=== PATIENT | female | born 1990 | race Caucasian/White ===

== ENCOUNTER 2016-09-04 14:44 | Observation (INO) | payer BC, MEDICAID ==
[2016-09-04] VITALS (8 sets, daily range): BP systolic 92–111; BP diastolic 53–62; PULSE 76–88; RESP 16–20; TEMP 98–98.2; O2SAT 100
[~2016-09-04] VITALS: Ht 149.9 cm; Wt 71.2 kg
--- NOTE | 2016-09-04 16:31 | PD ---
HPI Chief Complaint Shortness of breath., headache, swelling and rash in her hands and feet ,back pain is feeling very bad over the last several days Date Seen: Sep 04, 2016 Travel History International Travel<30 Days: No Contact w/Intl Traveler<30Days: No Known Affected Area: No History of Present Illness HPI Patient is 26-year-old white female at 34 weeks sent over by Dr. Downing for 23 hour observation and collect lab in the other data on her, she is been doing well with her and moved here in July from [place] and is started her care here. Over the last several weeks she started feeling worse and recently now her asthma is been flaring up shortness of breath is worse she's been using her inhaler as directed reachieve symmetry Dr. Downing today in our office she wanted her sent over for observation admission. Patient's baby is active there is no contractions bleeding or rupture the membranes. Para: 0 : 1 History Past Medical History Narrative Medical Asthma Social History Alcohol Use: No Tobacco Use: No Substance Abuse: No Review of Systems Eyes: Pain HENT: Headaches Respiratory: Short of Breath Gastrointestinal: Nausea, Abdominal Pain Skin: Rash Neurologic: Dizziness Physical Exam Narrative GENERAL: Well-nourished, well-developed patient. In no acute distress SKIN: Warm and dry. HEAD: Normocephalic and atraumatic. EYES: No scleral icterus. No injection or drainage. ENT: No nasal drainage noted. Mucous membranes pink. Airway patent. NECK: Supple, trachea midline. No JVD. CARDIOVASCULAR: Regular rate and rhythm without murmurs, gallops, or rubs. RESPIRATORY: Breath sounds equal bilaterally. No accessory muscle use. BREASTS: Bilateral exam showed no masses , no retractions, no nipple discharge. ABDOMEN/GI: Abdomen soft, non-tender, bowel sounds present, no rebound, no guarding no CVA tenderness Gravid to [34-] weeks size Fundal Height: [34-] GENITOURINARY: Uterine Contractions: [ none-] FHT's: Category: [1-] Baseline: [144-] Reactive: [-yes] Variability: [mod-] Decels: [-none] EXTREMITIES: No cyanosis or edema. BACK: Nontender without obvious deformity. No CVA tenderness. NEUROLOGICAL: Awake and alert. Motor and sensory grossly within normal limits. Five out of 5 muscle strength in all muscle groups. Normal speech. Data Data Orders Complete Blood Count With Diff (09/04/16 15:50) Urinalysis - C+S If Indicated (09/04/16 15:50) Hemoglobin (Hgb) A1c (09/04/16 15:50) Basic Metabolic Panel (Bmp) (09/04/16 15:50) Place In Observation (09/04/16 ) MDM Interpretation(s) The patient is a 26-year-old white female at [address] Downing for evaluation of shortness of breath headache and multiple other complaints. She denies bleeding or leakage of fluid or contractions baby is active heart rate tracing is reactive. Her O2 sats 100% her lungs are clear no wheezing noted Plan Plan to follow Dr. Downing's orders by getting the patient observation checking the labs she is her review recommended and she will follow-up with the patient's therapies Diagnosis Diagnosis: Primary Impression: Shortness of breath due to in third trimester Additional Impression: Headache Condition: Stable Fish Holland II, MD Sep 04, 2016 16:31
[2016-09-04 16:36] LABS: BACTERIA, URINE RARE /hpf; BLOOD, URINE NEG (NEG); COMMENT (UR) CULT NOT INDICATED; CULTURE IF INDICATED CULT NOT INDICATED; GLUCOSE,URINE NEG (NEG); KETONE, URINE NEG (NEG); MUCUS URINE FEW /lpf (OCC); NITRITE,URINE NEG (NEG); PH, URINE 6.5 (5.0-8.5); SQUAMOUS EPITHELIAL CELL URINE 9 /hpf (0-5); URINE COLOR LIGHT-YELLOW (YELLW/STRAW)
[2016-09-04 16:37] LABS: AUTOMATED NEUTROPHIL # 8.4 TH/MM3 (1.8-7.7); BASOPHIL % 0.4 % (0.0-2.0); EOSINOPHIL # 0.1 TH/MM3 (0-0.4); EOSINOPHIL % 0.6 % (0.0-4.0); HEMATOCRIT 36.1 % (35.0-46.0); HEMO FLAGS DIFF FINAL; LYMPH % 13.8 % (9.0-44.0); LYMPHOCYTE # 1.5 TH/MM3 (1.0-4.8); MEAN CELL VOLUME 92.7 FL (80.0-100.0); MEAN CORPUSCULAR HEMOGLOBIN 31.3 PG (27.0-34.0); MEAN CORPUSCULAR HGB CONC 33.7 % (32.0-36.0); MONO % 5.7 % (0.0-8.0); NEUT % 79.5 % (16.0-70.0); PLATELET COUNT 163 TH/MM3 (150-450); RED BLOOD COUNT 3.89 MIL/MM3 (4.00-5.30); WHITE BLOOD COUNT 10.6 TH/MM3 (4.0-11.0)
[2016-09-04 16:48] LABS: ANION GAP 7 MEQ/L (5-15); BICARBONATE 25.7 MEQ/L (21.0-32.0); BLOOD UREA NITROGEN 7 MG/DL (7-18); CHLORIDE 107 MEQ/L (98-107); GLOMERULAR FILTRATION RATE 159 ML/MIN (>89); POTASSIUM 4.1 MEQ/L (3.5-5.1); SODIUM (NA) 140 MEQ/L (136-145)
[2016-09-04] MEDS ORDERED: PRENCAP PO (17:03)
[2016-09-04] MEDS ORDERED: ALBUAER3 INH (17:03)
[2016-09-04] MEDS ORDERED: M2 M100C (17:03)
[2016-09-04 17:49] LABS: HEMOGLOBIN A1a 0.9 %; HEMOGLOBIN A1b 0.8 %; HEMOGLOBIN F 0.8 %; HEMOGLOBIN LA1C 1.8 %; HEMOGLOBIN P3 3.3 %
[2016-09-04] MEDS: traMADol HCL 50 MG TAB PO PRN (18:08)
[2016-09-04] MEDS ORDERED: ALBUTEROL SULFATE 90 MCG/ACT HFA 8 GM INHALER INH PRN (18:15)
[2016-09-04] MEDS ORDERED: LACTATED RINGER'S 1000 ML INJ 500 ML IV SCH (18:15)
--- NOTE | 2016-09-04 20:57 | PD.OB.ANTE ---
Subjective Interval History As per Dr. Holland; Joy seen in our office and ill appearing with complaint of change in accuchecks from very normal range to 50's-150's with no change in diet or activity. Swelling, PAREKH, blurred vision, rash, nausea and cramping. GFM and BPP in office 02/12. However placenta grade 3. She had 3+ DTRs in office. brought in for extended monitoring. 2 PP was 85 and labs all normal tho platelets 163. Very irritable uterus. Reassuring strip. Antepartum ROS: Reports: movement normal, Contractions Objective Vital Signs Vital Signs Date Time Temp Pulse Resp B/P Pulse Ox O2 Delivery O2 Flow Rate FiO2 09/04/16 20:00 88 100 09/04/16 19:31 83 92/53 09/04/16 19:30 98.0 09/04/16 17:00 98.2 09/04/16 16:50 85 111/62 09/04/16 16:49 16 Lab & Micro Results Test 09/04/16 15:55 White Blood Count 10.6 TH/MM3 Red Blood Count 3.89 MIL/MM3 Hemoglobin 12.2 GM/DL Hematocrit 36.1 % Mean Corpuscular Volume 92.7 FL Mean Corpuscular Hemoglobin 31.3 PG Mean Corpuscular Hemoglobin 33.7 % Concent Red Cell Distribution Width 13.0 % Platelet Count 163 TH/MM3 Mean Platelet Volume 9.0 FL Neutrophils (%) (Auto) 79.5 % Lymphocytes (%) (Auto) 13.8 % Monocytes (%) (Auto) 5.7 % Eosinophils (%) (Auto) 0.6 % Basophils (%) (Auto) 0.4 % Neutrophils # (Auto) 8.4 TH/MM3 Lymphocytes # (Auto) 1.5 TH/MM3 Monocytes # (Auto) 0.6 TH/MM3 Eosinophils # (Auto) 0.1 TH/MM3 Basophils # (Auto) 0.0 TH/MM3 CBC Comment DIFF FINAL Differential Comment Urine Color LIGHT-YELLOW Urine Turbidity HAZY Urine pH 6.5 Urine Specific [place] 1.008 Urine Protein NEG mg/dL Urine Glucose (UA) NEG mg/dL Urine Ketones NEG mg/dL Urine Occult Blood NEG Urine Nitrite NEG Urine Bilirubin NEG Urine Urobilinogen LESS THAN 2.0 MG/DL Urine Leukocyte Esterase SMALL Urine WBC LESS THAN 1 /hpf Urine Squamous Epithelial 9 /hpf Cells Urine Bacteria RARE /hpf Urine Mucus FEW /lpf Microscopic Urinalysis Comment CULT NOT INDICATED Sodium Level 140 MEQ/L Potassium Level 4.1 MEQ/L Chloride Level 107 MEQ/L Carbon Dioxide Level 25.7 MEQ/L Anion Gap 7 MEQ/L Blood Urea Nitrogen 7 MG/DL Creatinine 0.48 MG/DL Estimat Glomerular Filtration 159 ML/MIN Rate Random Glucose 96 MG/DL Hemoglobin A1c 5.0 % Calcium Level 8.7 MG/DL Physical Exam GENERAL: Well-nourished, well-developed patient. CARDIOVASCULAR: Regular rate and rhythm without murmurs, gallops, or rubs. RESPIRATORY: Breath sounds equal bilaterally. No accessory muscle use. ABDOMEN/GI: Abdomen soft, non-tender. 32 GENITOURINARY: External Genitalia: intact and normal in appearance 1+/20%/-2 intact contractions mild to palpation category 1 EXTREMITIES: No cyanosis or edema, non-tender, without signs of DVT. Assessment and Plan Assessment and Plan 34 + week primip with Class A GDM and significant asthma -- not yet on her xolair due to insurance issues. Feeling poorly with non descript finding. here for extensive monitoring. glyberide discontinued will give steroids given possibility of early delivery and reasonable glucose control Luciana Downing MD Sep 04, 2016 20:57
[2016-09-04] MEDS ORDERED: CALCIUM GLUCONATE 10% 1 GM/10 ML VIAL IV PRN (21:00)
[2016-09-04] MEDS ORDERED: MORPHINE SULFATE 4 MG/ML INJ IV PUSH ONE (21:30)
[2016-09-04] MEDS: LACTATED RINGER'S 1000 ML INJ 1,000 ML IV SCH (21:46)
[2016-09-04] MEDS: BETAMETHASONE SOD PHOS/ACETATE SUSP 30 MG/5 ML VIAL IM SCH (21:46)
[2016-09-04 22:38] LABS: AMPHETAMINE, URINE NEG (NEG); BARBITURATES, URINE NEG (NEG); COCAINE, URINE NEG (NEG)
[2016-09-05] VITALS (7 sets, daily range): BP systolic 101–113; BP diastolic 48–63; PULSE 81–119; RESP 18–20; TEMP 97.4–98.5; O2SAT 99
[2016-09-05] MEDS: traMADol HCL 50 MG TAB PO PRN (00:04)
[2016-09-05] MEDS: LACTATED RINGER'S 1000 ML INJ 1,000 ML IV SCH (03:00)
[2016-09-05] MEDS: BETAMETHASONE SOD PHOS/ACETATE SUSP 30 MG/5 ML VIAL IM SCH (10:29)
[2016-09-05 11:04] LABS: BASOPHIL % 0.1 % (0.0-2.0); HEMATOCRIT 35.6 % (35.0-46.0); HEMO FLAGS DIFF FINAL; LYMPH % 7.1 % (9.0-44.0); LYMPHOCYTE # 0.8 TH/MM3 (1.0-4.8); MEAN CORPUSCULAR HEMOGLOBIN 31.4 PG (27.0-34.0); MEAN CORPUSCULAR HGB CONC 34.1 % (32.0-36.0); MONO % 1.5 % (0.0-8.0); NEUT % 91.3 % (16.0-70.0); PLATELET COUNT 159 TH/MM3 (150-450); RED BLOOD COUNT 3.87 MIL/MM3 (4.00-5.30)
--- NOTE | 2016-09-05 11:33 | PD.OB.ANTE ---
Subjective Interval History HD#2, Feeling better. Blood sugar and HgbA1c are normal Objective Vital Signs Vital Signs Date Time Temp Pulse Resp B/P Pulse Ox O2 Delivery O2 Flow Rate FiO2 09/05/16 09:12 98.1 09/05/16 09:12 20 09/05/16 05:22 97.4 09/05/16 05:01 18 09/05/16 05:00 88 105/63 99 09/05/16 00:07 99 09/05/16 00:07 81 18 101/59 09/04/16 22:23 20 100 09/04/16 22:22 76 97/59 09/04/16 20:00 88 100 09/04/16 19:31 83 92/53 09/04/16 19:30 98.0 09/04/16 17:00 98.2 09/04/16 16:50 85 111/62 09/04/16 16:49 16 Lab & Micro Results Test 09/04/16 09/05/16 15:55 10:39 White Blood Count 10.6 TH/MM3 12.0 TH/MM3 Red Blood Count 3.89 MIL/MM3 3.87 MIL/MM3 Hemoglobin 12.2 GM/DL 12.1 GM/DL Hematocrit 36.1 % 35.6 % Mean Corpuscular Volume 92.7 FL 92.0 FL Mean Corpuscular Hemoglobin 31.3 PG 31.4 PG Mean Corpuscular Hemoglobin 33.7 % 34.1 % Concent Red Cell Distribution Width 13.0 % 13.0 % Platelet Count 163 TH/MM3 159 TH/MM3 Mean Platelet Volume 9.0 FL 9.0 FL Neutrophils (%) (Auto) 79.5 % 91.3 % Lymphocytes (%) (Auto) 13.8 % 7.1 % Monocytes (%) (Auto) 5.7 % 1.5 % Eosinophils (%) (Auto) 0.6 % 0.0 % Basophils (%) (Auto) 0.4 % 0.1 % Neutrophils # (Auto) 8.4 TH/MM3 11.0 TH/MM3 Lymphocytes # (Auto) 1.5 TH/MM3 0.8 TH/MM3 Monocytes # (Auto) 0.6 TH/MM3 0.2 TH/MM3 Eosinophils # (Auto) 0.1 TH/MM3 0.0 TH/MM3 Basophils # (Auto) 0.0 TH/MM3 0.0 TH/MM3 CBC Comment DIFF FINAL DIFF FINAL Differential Comment Urine Color LIGHT-YELLOW Urine Turbidity HAZY Urine pH 6.5 Urine Specific [place] 1.008 Urine Protein NEG mg/dL Urine Glucose (UA) NEG mg/dL Urine Ketones NEG mg/dL Urine Occult Blood NEG Urine Nitrite NEG Urine Bilirubin NEG Urine Urobilinogen LESS THAN 2.0 MG/DL Urine Leukocyte Esterase SMALL Urine WBC LESS THAN 1 /hpf Urine Squamous Epithelial 9 /hpf Cells Urine Bacteria RARE /hpf Urine Mucus FEW /lpf Microscopic Urinalysis Comment CULT NOT INDICATED Sodium Level 140 MEQ/L Potassium Level 4.1 MEQ/L Chloride Level 107 MEQ/L Carbon Dioxide Level 25.7 MEQ/L Anion Gap 7 MEQ/L Blood Urea Nitrogen 7 MG/DL Creatinine 0.48 MG/DL Estimat Glomerular Filtration 159 ML/MIN Rate Random Glucose 96 MG/DL Hemoglobin A1c 5.0 % Calcium Level 8.7 MG/DL Urine Opiates Screen NEG Urine Barbiturates Screen NEG Urine Amphetamines Screen NEG Urine Benzodiazepines Screen NEG Urine Cocaine Screen NEG Urine Cannabinoids Screen NEG Physical Exam GENERAL: Well-nourished, well-developed patient. CARDIOVASCULAR: Regular rate and rhythm without murmurs, gallops, or rubs. RESPIRATORY: Breath sounds equal bilaterally. No accessory muscle use. ABDOMEN/GI: Abdomen soft, non-tender. Fundus: [-] GENITOURINARY: External Genitalia: intact and normal in appearance Cervix: [-] Membranes: intact Uterine Contractions: n/a FHT's: Category: 1 Baseline: [-] Reactive: [-] Variability: [-] Decels: [-] EXTREMITIES: No cyanosis or edema, non-tender, without signs of DVT. Assessment and Plan Assessment and Plan 34 + weeks, Doing well, feels better, No UC,Bleeding; Denies PAREKH,BV,N/V 24 hour collection inprogress, will discharge to home after 24 hour urine completed.RTO in 1 week Zaki Mahmood MD Sep 05, 2016 11:33
[2016-09-05 16:48] LABS: URINE TOTAL PROTEIN TIMED 5.3 MG/DL
== END 2016-09-05 17:59 | disposition home or self-care (01) ==
LOC: HOBED 14:44 → H2EA 16:33
PROVIDERS: ADMIT Obstetrics & Gynecology; ATTEND Obstetrics & Gynecology
DX: O99.513 Diseases of the respiratory system complicating pregnancy, third trimester (principal); R51 Headache; R21 Rash and other nonspecific skin eruption; M54.9 Dorsalgia, unspecified; Z3A.34 34 weeks gestation of pregnancy; R11.0 Nausea; H53.8 Other visual disturbances
CPT/HCPCS: 36415; 80048; 80307; 81001; 83036; 84157; 85025; 99285; G0378; J0702; J2270; J7120

== ENCOUNTER 2016-09-12 18:53 | Emergency (ER) | payer BC, MEDICAID ==
[~2016-09-12] VITALS: Ht 149.9 cm; Wt 72.0 kg
[~2016-09-12 18:53] MED LIST: ALBUAER3 INH; M2 M100C; PRENCAP PO
[2016-09-12 18:55] VITALS: BP 151/90; PULSE 120; RESP 24; TEMP 97.7; O2SAT 96
[2016-09-12 19:24] VITALS: PULSE 105; RESP 16; O2SAT 98
[2016-09-12] MEDS ORDERED: ACETAMINOPHEN 325 MG TAB PO ONE (19:45)
--- NOTE | 2016-09-12 19:55 | PD ---
HPI Chief Complaint: Fall Time Seen by Provider: 19:49 Travel History International Travel<30 days: No Contact w/Intl Traveler<30days: No Traveled to known affect area: No History of Present Illness HPI Patient comes in complaining of left thumb pain after slipping and falling and catching herself with her left hand after falling backwards. Pain is sharp stabbing pain that radiates proximally. Pain is worse with certain movement. Patient since developed some achiness in her left shoulder that is worse with certain movement. Patient denies any direct trauma to the shoulder. Patient denies doing anything for this prior coming to the emergency department. Denies any numbness or tingling. Patient is approximately 35 weeks reports she is high risk and that she did hit the right side of her belly when she landed. Patient reports she has felt the baby move since has been having contractions over the past week and is on bedrest secondary being high risk . PFSH Past Medical History Asthma: Yes Diabetes: Yes (GESTATIONAL) Patient Takes Glucophage: No Diminished Hearing: No Respiratory: Yes (ASTHMA) Tetanus Vaccination: < 5 Years Influenza Vaccination: Yes ?: LMP: 35 WKS Past Surgical History Surgical History: No Previous Surgery Social History Alcohol Use: No Tobacco Use: No Substance Use: No Allergies-Medications (Allergen,Severity, Reaction): Coded Allergies: Pecan (Verified Allergy, Severe, Rash, THROAT SWELLS, 09/12/16) Reported Meds & Prescriptions Reported Meds & Active Scripts Active Reported Magnesium 100 Mg Cap Proair Hfa 8.5 GM Inh (Albuterol Sulfate) 90 Mcg/Act Aer 2 Puff INH Q4-6H PRN 108 mcg/actuation Active Ob 20-1-320 mg ( W/O Vit A W/ Fe Carbo) 1 Cap Cap 1 Tab PO DAILY Review of Systems Except as stated in HPI: all other systems reviewed are Neg Physical Exam Narrative GENERAL: Well-developed, well nourished, in no acute distress, and non-ill appearing. SKIN: Warm and dry. No ecchymosis, abrasions, or other traumatic lesions noted on the right side of the abdomen patient states she hit. HEAD: Atraumatic. Normocephalic. EYES: Pupils equal and round. EOMI. No scleral icterus. No injection or drainage. ENT: No nasal bleeding or discharge. Mucous membranes pink and moist. NECK: Trachea midline. Supple. No nuclear rigidity. CARDIOVASCULAR: Radial pulses 2+, intact, equal bilaterally. Capillary refill less than 2 seconds. RESPIRATORY: No accessory muscle use. No respiratory distress. MUSCULOSKELETAL: No obvious deformities. No clubbing. No cyanosis. No edema. Full range of motion. Shoulder:FROM equal BL with passive flexion, extension, Abduction, Adduction, internal/external rotation, and pronation/supination. Sensation equal BL deltoid muscles. Pulses equal BL distal to injury. Capillary refill less than 2 seconds distal to injury and equal BL. FROM distal to injury and equal BL. Strength distal to injury equal BL. NV intact distal to injury equal BL. Flexion and extension of thumb equal BL. Equal strength and movement with abduction/adductions of BL fingers. Aircraft Maintenance [employer] strength equal BL. Wrist : FROM and equal BL with passive flexion, extension, and pronation/supination. Capillary refill less than 2 seconds distal to injury and equal BL. FROM distal to injury and equal BL. Strength distal to injury equal BL. NV intact distal to injury. Flexion and extension of thumb equal BL. Equal strength and movement with abduction/adductions of BL fingers. Aircraft Maintenance Manager strength equal BL. No tenderness to the anatomical snuffbox. Patient reports tenderness to palpation over proximal phalanx of left thumb and first metacarpal. NEUROLOGICAL: Awake and alert. No obvious cranial nerve deficits. Motor grossly within normal limits. Normal speech. PSYCHIATRIC: Appropriate mood and affect; insight and judgment normal. Data Data Last Documented VS Vital Signs Date Time Temp Pulse Resp B/P Pulse Ox O2 Delivery O2 Flow Rate FiO2 09/12/16 21:06 16 09/12/16 19:41 99 Room Air 09/12/16 19:24 105 09/12/16 18:55 97.7 151/90 Orders Finger ([id number]) (09/12/16 ) Ice/Cold Pack (09/12/16 19:40) Heart Tones (09/12/16 19:40) Acetaminophen (Tylenol) (09/12/16 19:45) Shoulder, Limited(2vws) (09/12/16 ) Splint Or Brace Apply/Monitor (09/12/16 20:29) Scapula (09/12/16 ) [facility] Medical Decision Making Medical Screen Exam Complete: Yes Emergency Medical Condition: Yes Differential Diagnosis Fracture, strain, contusion, other Narrative Course There is no clinical evidence for fracture. There is no clinical evidence to suspect bony injury by exam. Radiographic examination revealed no fracture seen at this time. No obvious ligamental injury or internal derangement is noted at this time. The distal extremity appears neurovascularly intact, without evidence of neurovascular injury nor compartment syndrome. Tendon exam also was intact. The effected limb was splinted. The patient was discharged with sprain and splint care instructions and given warnings for vascular compromise. The patient is to follow up with Dr. Maldonado. The patient agrees with plan. Patient in no obvious distress upon re-evaluation. All pertinent Radiology result(s) discussed with patient/family. I discussed patient with Dr. Yusuf prior to discharge, who is in agreement with plan of care and disposition. Any questions/concerns in reference to patient diagnosis/condition discussed and clarified prior to patient's discharge. Reinforced sheer importance of close follow up with patient's primary physician and Dr. Maldonado. Instructed patient to return to ED immediately, if symptoms return/worsen. Pt showed understanding of above instructions. Further instructions and recommendations were detailed in discharge paperwork. Pt was transferred to OB for monitoring secondary to abdominal wall trauma. Diagnosis Primary Impression: Other sprain of left thumb, initial encounter Additional Impression: Strain of left shoulder Qualified Code: S46.912A - Strain of left shoulder, initial encounter Referrals: Romy Maldonado MD Patient Instructions: Finger Sprain (ED), General Instructions, How to Use a Sling (GEN), Shoulder Sprain (ED), Splint Care (ED) Additional Instructions: Follow-up with your primary care physician and/or hand surgeon 24-48 hours for reevaluation. Use [id number] Tylenol as needed for pain. Follow instructions on the packaging. Apply ice to affected area 20 minutes per hour as needed for pain. Return to the emergency department if symptoms get worse. Disposition: 01 DISCHARGE HOME Condition: Paresh Vaughn Sep 12, 2016 19:55
--- NOTE | 2016-09-12 20:23 | RADRPT ---
EXAM DATE/TIME: 09/12/2016 20:06 [facility] COMPARISON: No previous studies available for comparison. INDICATIONS : Left hand, thumb pain, fall today. MEDICAL HISTORY : None. SURGICAL HISTORY : None. ENCOUNTER: Initial ACUITY: 1 day PAIN SCORE: 10/10 LOCATION: Left thumb. FINDINGS: Examination of the first digit of the left hand demonstrates no evidence of fracture or dislocation. No radiopaque foreign bodies are seen. The soft tissues are intact. CONCLUSION: No acute fracture left thumb. Dexter Haines MD on September 12, 2016 at 20:21 Board Certified Radiologist. This report was verified electronically.
--- NOTE | 2016-09-12 20:26 | RADRPT ---
EXAM DATE/TIME: 09/12/2016 20:16 [facility] COMPARISON: No previous studies available for comparison. INDICATIONS : Left shoulder pain, fall today. MEDICAL HISTORY : None. SURGICAL HISTORY : None. ENCOUNTER: Initial ACUITY: 1 day PAIN SCORE: 10/10 LOCATION: Left shoulder. FINDINGS: Two view examination of the left shoulder demonstrates a slight cortical irregularity of the scapula questioning fracture. Proximal humerus and remaining shoulders intact. The glenohumeral and acromioc lavicular joints are maintained. Bony mineralization is normal. CONCLUSION: Questionable scapular fracture. Dedicated views of the scapula may be warranted. Dexter Haines MD on September 12, 2016 at 20:22 Board Certified Radiologist. This report was verified electronically.
[2016-09-12 21:06] VITALS: RESP 16
--- NOTE | 2016-09-12 21:16 | RADRPT ---
EXAM DATE/TIME: 09/12/2016 21:15 [facility] COMPARISON: SHOULDER LEFT LTD (2VWS), September 12, 2016, 20:16. INDICATIONS : Left shoulder pain, fall today. MEDICAL HISTORY : None. SURGICAL HISTORY : None. ENCOUNTER: Subsequent ACUITY: 1 day PAIN SCORE: 10/10 LOCATION: Left scapula FINDINGS: Two view examination of the left scapula demonstrates no evidence of fracture. The glenohumeral and acromioclavicular joints are maintained. Bony mineralization is normal. CONCLUSION: No scapular fracture seen. Dexter Haines MD on September 12, 2016 at 21:14 Board Certified Radiologist. This report was verified electronically.
--- NOTE | 2016-09-12 22:40 | PD ---
HPI Chief Complaint Fall at home with left shoulder and thumb injury has been cleared by the main emergency department to come up to labor and delivery Date Seen: Sep 12, 2016 Time Seen: 22:36 Travel History International Travel<30 Days: No Contact w/Intl Traveler<30Days: No Known Affected Area: No History of Present Illness HPI 26-year-old female who is at 35 weeks 1 day is at bedrest at home. Over some boxes hit her left shoulder and left thumb and heard a popping came here to maintain ER. She states that when she did fall down to the ground she rolled onto her belly for a short time but there was no abdominal trauma noted. Good movement Para: 0 : 1 History Past Medical History Narrative Medical Asthma Past Surgical History Narrative Surgical Cholecystectomy and appendectomy Family History Family History: Negative Social History Alcohol Use: No Tobacco Use: No Substance Abuse: No Allergies-Medications (Allergen,Severity, Reaction): Coded Allergies: Pecan (Verified Allergy, Severe, Rash, THROAT SWELLS, 09/12/16) Home Meds Reported Medications Magnesium 100 Mg Cap 09/04/16 Albuterol 8.5 GM Inh (Proair Hfa 8.5 GM Inh)90 Mcg/Act Aer2 Puff INH Q4-6H PRN ( SHORTNESS OF BREATH) #1 INHALER Ref 0 108 mcg/actuation 09/04/16 W/O Vit A W/ Fe Carbo (Active Ob 20-1-320 mg)1 Cap Cap1 Tab PO DAILY 09/04/16 Review of Systems Except as stated in HPI: all other systems reviewed are Neg Physical Exam Vital Signs Date Time Temp Pulse Resp B/P Pulse Ox O2 Delivery O2 Flow Rate FiO2 09/12/16 21:06 16 09/12/16 19:41 16 99 Room Air 09/12/16 19:24 105 16 98 09/12/16 18:55 97.7 120 24 151/90 96 Room Air Narrative GENERAL: Well-nourished, well-developed patient. SKIN: Warm and dry. ABDOMEN/GI: Abdomen soft, non-tender, bowel sounds present, no rebound, no guarding Gravid to [-] weeks size Fundal Height: [-35] GENITOURINARY: External Genitalia: intact and normal in appearance deferred BUS glands: [-] Cervix: [-] Dilatation: [-] Effacement: [-] Station: [-] Presentation: [-] Membranes: [intact or ruptured] Uterine Contractions: [-] FHT's: Category: [-1] Baseline: [-140] Reactive: [-Reactive moderate] Variability: [-] Decels: [-] Absent EXTREMITIES: No cyanosis or edema. BACK: Nontender without obvious deformity. No CVA tenderness. NEUROLOGICAL: Awake and alert. Motor and sensory grossly within normal limits. Five out of 5 muscle strength in all muscle groups. Normal speech. Data Data Orders Finger ([id number]) (09/12/16 ) Ice/Cold Pack (09/12/16 19:40) Heart Tones (09/12/16 19:40) Acetaminophen (Tylenol) (09/12/16 19:45) Shoulder, Limited(2vws) (09/12/16 ) Splint Or Brace Apply/Monitor (09/12/16 20:29) Scapula (09/12/16 ) MDM Medical Record Reviewed: Yes Plan Patient 35-36 weeks with a reactive nonstress test. Patient has been seen by the main ED and been given treatment for her left shoulder and left. Patient will be discharged home to follow with her OB provider as scheduled. She was given warnings to come back for abdominal pain or vaginal bleeding Diagnosis Diagnosis: Primary Impression: Other sprain of left thumb, initial encounter Additional Impression: Strain of left shoulder Qualified Code: S46.912A - Strain of left shoulder, initial encounter Disposition: 01 DISCHARGE HOME Condition: Fair Referrals: Romy Maldonado MD Patient Instructions: General Instructions, How to Use a Sling (GEN), Splint Care (ED), Shoulder Sprain (ED), Finger Sprain (ED) Additional Instructions: Follow-up with your primary care physician and/or hand surgeon 24-48 hours for reevaluation. Use [id number] Tylenol as needed for pain. Follow instructions on the packaging. Apply ice to affected area 20 minutes per hour as needed for pain. Return to the emergency department if symptoms get worse. Departure Forms: Tests/Procedures Latasha Alcala MD Sep 12, 2016 22:40
== END 2016-09-12 23:10 | disposition home or self-care (01) ==
LOC: HOBED 18:53 → NEPB 21:42 → HOBED 21:50
DX: S63.602A Unspecified sprain of left thumb, initial encounter (principal); S46.912A Strain of unspecified muscle, fascia and tendon at shoulder and upper arm level, left arm, initial encounter; O24.419 Gestational diabetes mellitus in pregnancy, unspecified control; W01.0XXA Fall on same level from slipping, tripping and stumbling without subsequent striking against object, initial encounter; Z3A.35 35 weeks gestation of pregnancy
CPT/HCPCS: 73010; 73030; 73140; 99284; L3808

== ENCOUNTER 2016-10-04 14:10 | Emergency (ER) | payer OTHER, MEDICAID ==
--- NOTE | 2016-10-04 15:16 | PD ---
HPI Travel History International Travel<30 Days: No Contact w/Intl Traveler<30Days: No Known Affected Area: No History of Present Illness HPI This patient is a 26-year-old EDC is October 08, 2016 presently at 38 weeks and 2 days she is scheduled for induction of labor on October 08 she presents with chief complaint of irregular contractions has had a positive bloody show did pass her mucous plug care with Dr. Downing course is significant for a history of gestational diabetes and a history of asthma baby also was large for gestational age no rupture of membranes the baby is active History Past Medical History Narrative Medical Allergy pecans no major medical problems history of gestational diabetes and asthma Obstetric History Obstetric History First Past Surgical History Narrative Surgical Appendectomy and gallbladder Family History Narrative Family History Mother with diabetes Social History Alcohol Use: No Tobacco Use: No Substance Abuse: No Allergies-Medications (Allergen,Severity, Reaction): Coded Allergies: Pecan (Verified Allergy, Severe, Rash, THROAT SWELLS, 09/12/16) Home Meds Reported Medications Magnesium 100 Mg Cap 09/04/16 Albuterol 8.5 GM Inh (Proair Hfa 8.5 GM Inh)90 Mcg/Act Aer2 Puff INH Q4-6H PRN ( SHORTNESS OF BREATH) #1 INHALER Ref 0 108 mcg/actuation 09/04/16 W/O Vit A W/ Fe Carbo (Active Ob 20-1-320 mg)1 Cap Cap1 Tab PO DAILY 09/04/16 Review of Systems Gastrointestinal: Abdominal Pain (irregular contractions) Physical Exam Narrative GENERAL: Well-nourished, well-developed patient. Alert oriented 3 and cooperative in no acute distress CARDIOVASCULAR: Regular rate and rhythm without murmurs, gallops, or rubs. RESPIRATORY: Breath sounds equal bilaterally. No accessory muscle use. ABDOMEN/GI: Gravid term mild palpable contractions Gravid to [-] weeks size term Fundal Height: [-] GENITOURINARY: External Genitalia: intact and normal in appearance BUS glands: [-] Cervix: [-] Posterior soft Dilatation: [-] 1-2 cm Effacement: [-] 0 Station: [-] -2 Presentation: [-] Vertex Membranes: [intact Uterine Contractions: [-] Irregular FHT's: Category: [-] 1 Baseline: [-] 150 Reactive: [-] + Variability: [-] Moderate [id number] variability Decels: [-] 0 EXTREMITIES: No cyanosis or edema. 2+ reflexes NEUROLOGICAL: Awake and alert. Motor and sensory grossly within normal limits. Five out of 5 muscle strength in all muscle groups. Normal speech. Data Data Vital Signs Reviewed: Yes (blood pressures 121/79 pulse is 92 respiration 20 temperature is 98) Orders Vital Signs (Adult) .ON ADMISSION (10/04/16 15:06) ^ Labor Status (10/04/16 15:06) ^ Hydration (10/04/16 15:06) MDM Medical Record Reviewed: No Interpretation(s) 26-year-old presently at 38 weeks and 2 days False labor versus early latent phase Gestational diabetes diet controlled Plan As patient has a category 1 tracing Will discharge home kick count By mouth fluid hydration Follow-up with Dr. Downing in 1-2 days Physician Communication Spoke with Dr. Downing she is aware of the patient's presence in triage agrees with evaluation and management Diagnosis Diagnosis: Primary Impression: 38 weeks gestation of Additional Impressions: Gestational diabetes Qualified Code: O24.410 - Diet controlled gestational diabetes mellitus (GDM) in third trimester False labor Disposition: DISCHARGE HOME Condition: Stable Patient Instructions: General Instructions Departure Forms: Tests/Procedures Caroline Flores MD Oct 04, 2016 15:16
[2016-10-05] MEDS ORDERED: GLYB2.5T3 PO (21:11)
== END 2016-10-04 15:25 | disposition home or self-care (01) ==
LOC: HOBED 14:10
DX: O24.410 Gestational diabetes mellitus in pregnancy, diet controlled (principal); Z3A.38 38 weeks gestation of pregnancy
CPT/HCPCS: 84112; 99284

== ENCOUNTER 2016-10-05 20:05 | Inpatient (IN) | payer OTHER, MEDICAID ==
[~2016-10-05] VITALS: Ht 149.9 cm; Wt 72.6 kg
[2016-10-05] MEDS ORDERED: GLYB2.5T3 PO (21:11)
--- NOTE | 2016-10-05 21:24 | PD ---
HPI Chief Complaint LOF, painful ctx Date Seen: Oct 05, 2016 Time Seen: 20:45 Travel History International Travel<30 Days: No Contact w/Intl Traveler<30Days: No Known Affected Area: No History of Present Illness HPI 26y/o , IUP at 38.3 records reviewed, PNC complicated by 1. late transfer of care 2. A2DM: on glyburide 2.5mg BID 3. Severe asthma: per notes, "50% usage of lungs," uses albuterol inhaler and on Xolair 4. LGA with EFW 95%, AC 99% per notes 5. h/o chlamydia prior to 6. Maternal short stature Patient presents c/o onset of LOF at 18:20 tonight while she was shopping at [employer]. She felt several "spurts" of liquid draining down her legs. She reports she continues to have LOF. She reports the onset of painful ctx shortly after the onset of LOF that have increased in intensity and frequency and are now about every 2-3 minutes. She reports good FM. She denies any VB. Para: 0 : 1 History Past Medical History Narrative Medical Gestational DM Asthma H/o renal nephrolithiasis Cyst on L kidney Obstetric History Obstetric History Denies h/o abnl PAP Reports h/o chlamydia prior to Denies other STDs Past Surgical History Narrative Surgical Cholecystectomy Appendectomy Family History Narrative Family History Asthma DM HTN CVA MD CAD CA Fibromyalgia Social History Alcohol Use: No Tobacco Use: No Substance Abuse: No Allergies-Medications (Allergen,Severity, Reaction): Coded Allergies: Pecan (Verified Allergy, Severe, Rash, THROAT SWELLS, 10/05/16) Home Meds Reported Medications Glyburide 2.5 Mg Tab2.5 Mg PO BID #60 TAB Ref 0 Take with meals at the same time each day 10/05/16 Magnesium 100 Mg Cap 09/04/16 Albuterol 8.5 GM Inh (Proair Hfa 8.5 GM Inh)90 Mcg/Act Aer2 Puff INH Q4-6H PRN ( SHORTNESS OF BREATH) #1 INHALER Ref 0 108 mcg/actuation 09/04/16 W/O Vit A W/ Fe Carbo (Active Ob 20-1-320 mg)1 Cap Cap1 Tab PO DAILY 09/04/16 Physical Exam Narrative GENERAL: Well-nourished, well-developed patient. A&Ox3, uncomfortable with ctx. SKIN: Warm and dry. No rashes/lesions noted. HEAD: Normocephalic and atraumatic. EYES: No scleral icterus. No injection or drainage. ENT: No nasal drainage noted. Mucous membranes pink. NECK: Supple, trachea midline. CARDIOVASCULAR: Regular rate and rhythm without murmurs, gallops, or rubs. RESPIRATORY: Breath sounds equal bilaterally. No accessory muscle use. BREASTS: Deferred ABDOMEN/GI: Abdomen soft, non-tender, bowel sounds present, no rebound, no guarding Gravid GENITOURINARY: External Genitalia: intact and normal in appearance, grossly ROM. Cervix: Dilatation: 4-5 by RN Effacement: complete Station: -2, posterior Presentation: cephalic Membranes: ruptured Uterine Contractions: q2-3 FHT's: Category: [-] Baseline: [-] Reactive: [-] Variability: [-] Decels: [-] EXTREMITIES: No cyanosis or edema. BACK: Nontender without obvious deformity. No CVA tenderness. NEUROLOGICAL: Awake and alert. Motor and sensory grossly within normal limits. Five out of 5 muscle strength in all muscle groups. Normal speech. MDM Plan A/P: 26y/o 1. IUP at 38.3 2. SROM/labor: will admit to Dr. Nunez, orders placed. Discussed with patient the risks of labor, risks/indications of C/S. 3. A2DM: Patient controlled on glyburide 2.5mg BID, reports well controlled. Discussed increased risks of C/S with maternal short stature, LGA on US, and A2DM. Patient desires trial of labor, Discussed with Dr. Nunez who was in agreement. Discussed with patient risks of , including but not limited to risk of shoulder dystocia with small but possible risk of permanent neurological or other injury. All of patient's questions were answered. 4. GBS neg 5. Severe asthma: will order albuterol 6. wellbeing: reassuring testing, continue EFM 7. O+/RI Pat Mason MD Oct 05, 2016 21:24
[2016-10-05] MEDS ORDERED: LACTATED RINGER'S 1000 ML INJ 1,000 ML IV SCH (21:32)
[2016-10-05] MEDS ORDERED: LACTATED RINGER'S 1000 ML INJ 1,000 ML IV PRN (21:32)
[2016-10-05] MEDS ORDERED: DEXTROSE 50% IN WATER 50 ML VIAL(D50) IV PUSH PRN (21:45)
[2016-10-05] MEDS ORDERED: SODIUM CHLORID 0.9% 500 ML INJ 500 ML IV PRN (21:45)
[2016-10-05] MEDS ORDERED: INSULIN NovoLIN REGULAR SUPPLEMENTAL SCALE SQ SCH (21:45)
[2016-10-05] MEDS ORDERED: OXYTOCIN 30 UNITS-500ML PREMIX 500 ML IV ONE (21:45)
[2016-10-05] MEDS ORDERED: MINERAL OIL 10 ML VIAL TOPICAL PRN (21:45)
[2016-10-05] MEDS ORDERED: CITRIC ACID-SODIUM CITRATE LIQ 30 ML UDC PO SCH ×2 (21:45→23:45)
[2016-10-05] MEDS ORDERED: LIDOCAINE HCL 1% 50 ML VIAL INFIL PRN (21:45)
[2016-10-05] MEDS ORDERED: GLUCAGON 1 MG/ML VIAL OTHER PRN (21:45)
[2016-10-05] MEDS ORDERED: LIDOCAINE HCL 1% 50 ML VIAL I-DERMAL PRN (21:45)
[2016-10-05] MEDS ORDERED: SODIUM CHLOR 0.9% 1000 ML INJ 1,000 ML IV PRN (21:52)
[2016-10-05 22:00] LABS: BACTERIA, URINE RARE /hpf; BLOOD, URINE NEG (NEG); COMMENT (UR) CULT NOT INDICATED; CULTURE IF INDICATED CULT NOT INDICATED; GLUCOSE,URINE NEG (NEG); KETONE, URINE NEG (NEG); MUCUS URINE FEW /lpf (OCC); NITRITE,URINE NEG (NEG); SQUAMOUS EPITHELIAL CELL URINE 2 /hpf (0-5); URINE COLOR YELLOW (YELLW/STRAW)
[2016-10-05] MEDS ORDERED: ALBUTEROL SULFATE 90 MCG/ACT HFA 8 GM INHALER INH PRN (22:00)
[2016-10-05 22:13] LABS: BASOPHIL % 0.1 % (0.0-2.0); EOSINOPHIL % 0.2 % (0.0-4.0); HEMATOCRIT 38.8 % (35.0-46.0); HEMO FLAGS DIFF FINAL; LYMPH % 8.9 % (9.0-44.0); LYMPHOCYTE # 1.5 TH/MM3 (1.0-4.8); MEAN CELL VOLUME 92.3 FL (80.0-100.0); MEAN CORPUSCULAR HEMOGLOBIN 30.9 PG (27.0-34.0); MEAN CORPUSCULAR HGB CONC 33.5 % (32.0-36.0); MONO % 5.3 % (0.0-8.0); NEUT % 85.5 % (16.0-70.0); PLATELET COUNT 145 TH/MM3 (150-450); RED CELL DISTRIBUTION WIDTH 12.9 % (11.6-17.2); WHITE BLOOD COUNT 16.4 TH/MM3 (4.0-11.0)
--- NOTE | 2016-10-05 22:13 | PD.LABORPN ---
Subjective Subjective NST Procedure Note Indications: IUP at 38w, A2DM, severe asthma, LOF/abdominal pain Baseline 150s Accels: good accels noted Decels: none Variability: moderate Final dx: IUPat 28w, SORM/labor, severe asthma, A2DM F/U: continue monitoring Objective Objective Pelvic Exam: Cervix: [-] Dilatation: [-] Effacement: [-] Station: [-] Presentation: [-] Membranes: [intact or ruptured] Uterine Contractions: [-] FHT's: Category: [-] Baseline: [-] Reactive: [-] Variability: [-] Decels: [-] Pat Mason MD Oct 05, 2016 22:13
[2016-10-05] MEDS ORDERED: ALBUTEROL SULFATE 90 MCG/ACT HFA 18 GM INHALER INH PRN (22:15)
[2016-10-05] MEDS ORDERED: TERBUTALINE INJ 1 MG/ML AMP ONE (23:08)
[2016-10-05 23:15] VITALS: PULSE 118
[2016-10-05] MEDS ORDERED: TERBUTALINE INJ 1 MG/ML AMP SQ SCH (23:15)
[2016-10-05 23:17] VITALS: RESP 18; TEMP 99
[2016-10-05 23:20] VITALS: PULSE 112
[2016-10-05 23:25] VITALS: BP 123/74; PULSE 113; PULSE 116
[2016-10-05] MEDS ORDERED: LACTATED RINGER'S 1000 ML IV SCH (23:45)
[2016-10-05] MEDS ORDERED: ceFAZolin 2 GM PREMIX 50 ML IV SCH (23:45)
[2016-10-05] MEDS ORDERED: LACTATED RINGER'S 1000 ML IV ONE (23:45)
[2016-10-06] VITALS (16 sets, daily range): BP systolic 96–133; BP diastolic 54–78; PULSE 81–116; RESP 17–20; TEMP 98.7–100.8; O2SAT 94–99
[2016-10-06] MEDS ORDERED: EPIDURAL-DIPHENHYDRAMINE HCL 50 MG/ML VIAL IV PUSH PRN
[2016-10-06] MEDS ORDERED: EPIDURAL-DO NOT ADMINISTER ANTICOAGULANTS PRN
[2016-10-06] MEDS ORDERED: EPIDURAL-DIPHENHYDRAMINE HCL 50 MG CAP PO PRN
[2016-10-06] MEDS ORDERED: EPIDURAL-NO SYSTEMIC NARCOTICS PRN
[2016-10-06] MEDS ORDERED: EPIDURAL-NALOXONE HCL 0.4 MG/ML AMP IV PRN
[2016-10-06] MEDS ORDERED: OXYTOCIN 10 UNIT/ML AMP ONE (00:12)
[2016-10-06] MEDS ORDERED: ZOLPIDEM TARTRATE 5 MG TAB PO PRN (01:00)
[2016-10-06] MEDS ORDERED: ACETAMINOPHEN 1000 MG/100 ML VIAL IV ONE ×2 (01:00→01:08)
[2016-10-06] MEDS ORDERED: ONDANSETRON HCL 4 MG/2 ML VIAL IV PUSH PRN (01:00)
[2016-10-06] MEDS ORDERED: OXYTOCIN 30 UNITS-500ML PREMIX 500 ML IV ONE (01:00)
[2016-10-06] MEDS ORDERED: SIMETHICONE 80 MG CHEWABLE TAB PO PRN (01:00)
[2016-10-06] MEDS ORDERED: SODIUM CHLORIDE 0.9% FLUSH 10 ML FLUSH IV FLUSH PRN (01:00)
[2016-10-06] MEDS ORDERED: MORPHINE SULFATE PF 5 MG/10 ML VIAL ONE (01:01)
[2016-10-06] MEDS ORDERED: ONDANSETRON HCL 4 MG/2 ML VIAL ONE (01:01)
[2016-10-06] MEDS ORDERED: RESP: ALBUTEROL 2.5 MG/3 ML NEB (PRN) ONE (01:11)
[2016-10-06] MEDS ORDERED: PROPOFOL 200 MG/20 ML AMP IV PUSH ONE (01:32)
[2016-10-06] MEDS ORDERED: OXYTOCIN 30 UNITS-500ML PREMIX 500 ML ONE (02:24)
[2016-10-06] MEDS ORDERED: KETOROLAC TROMETHAMINE 30 MG/ML (IVP) VIAL ONE (02:50)
[2016-10-06] MEDS ORDERED: LACTATED RINGER'S 1000 ML INJ 1,000 ML IV SCH (05:51)
[2016-10-06] MEDS: oxyCODONE/ACETAMINOPHEN 5 MG/325 MG TAB PO PRN ×4 (07:41→23:07)
[2016-10-06] MEDS: INSULIN NovoLIN REGULAR SUPPLEMENTAL SCALE SQ SCH ×3 (08:00→16:06)
[2016-10-06] MEDS: SODIUM CHLORIDE 0.9% FLUSH 10 ML FLUSH IV FLUSH SCH (09:00)
--- NOTE | 2016-10-06 09:30 | HHI.OB ---
Subjective Post Operative Day: 0 Remarks no complaints, , FS normal Objective Vitals/I&O Vital Signs Date Time Temp Pulse Resp B/P Pulse Ox O2 Delivery O2 Flow Rate FiO2 10/06/16 02:45 81 18 122/60 98 10/06/16 02:30 98.9 111 18 124/58 96 10/06/16 02:15 99 18 113/63 94 10/06/16 02:00 94 18 119/62 95 10/06/16 01:45 113 18 114/58 95 10/06/16 01:30 104/66 10/06/16 01:15 103/62 10/06/16 01:15 112 18 98 10/06/16 01:00 116 20 96/54 98 10/06/16 01:00 100.8 10/05/16 23:25 113 123/74 10/05/16 23:25 116 10/05/16 23:20 112 10/05/16 23:17 99.0 18 10/05/16 23:15 118 Result Diagram: 10/05/162129 Objective Remarks GENERAL: Well-nourished, well-developed patient. CARDIOVASCULAR: Regular rate and rhythm without murmurs, gallops, or rubs. RESPIRATORY: Breath sounds equal bilaterally. No accessory muscle use. ABDOMEN/GI: Abdomen soft, non-tender, bowel sounds present. Incision: dressing Clean, dry and intact. Fundus: Firm, non-tender at umbilicus. GENITOURINARY: Light to moderate bleeding. EXTREMITIES: No cyanosis or edema, non-tender, without signs of DVT. Medications and IVs Current Medications Medications (Trade) Dose Ordered Sig/Dilma Route Start Time Stop Time Status Last Admin (Lr 1000 ml Inj) 1,000 ml @ 100 mls/hr Q10H IV 10/06/16 05:51 10/07/16 01:50 (NS Flush) 2 ml BID IV FLUSH 10/06/16 09:00 (NS Flush) 2 ml UNSCH PRN IV FLUSH 10/06/16 01:00 10/06/16 05:22 (Mylicon Chew) 80 mg QID PRN PO 10/06/16 01:00 (Motrin) 600 mg Q6H PRN PO 10/06/16 01:00 (Percocet 5-325 Mg) 1 tab Q4H PRN PO 10/06/16 01:00 (Percocet 5-325 Mg) 2 tab Q4H PRN PO 10/06/16 01:00 10/06/16 07:41 (Anitra-Colace) 2 tab Q12H PRN PO 10/06/16 01:00 (Ambien) 5 mg HS PRN PO 10/06/16 01:00 (M-M-R Ii Inj) 0.5 ml ONCE ONCE SQ 10/07/16 16:00 10/07/16 16:01 (Boostrix Inj) 0.5 ml ONCE ONCE IM 10/07/16 16:00 10/07/16 16:01 (Zofran Inj) 4 mg Q6H PRN IV PUSH 10/06/16 01:00 (NovoLIN R SUPPLEMENTAL SCALE) 1 TIDAC SQ 10/06/16 08:00 (Ventolin Hfa Inh) 2 puff Q6HR PRN INH 10/06/16 01:00 Miscellaneous Information NO SYSTEMIC NARCOTICS TO BE GIVEN FO... UNSCH PRN .XX 10/06/16 00:00 10/07/16 00:00 (Narcan Inj) 0.4 mg UNSCH PRN IV 10/06/16 00:00 10/07/16 00:00 (Benadryl Inj) 25 mg Q6H PRN IV PUSH 10/06/16 00:00 10/07/16 00:00 10/06/16 05:22 (Benadryl) 50 mg Q6H PRN PO 10/06/16 00:00 10/07/16 00:00 Miscellaneous Information ALL NURSING DEPARTMENTS UNSCH PRN .XX 10/06/16 00:00 10/07/16 00:00 Assessment/Plan Problem List: (1) 38 weeks gestation of (2) Gestational diabetes (3) delivery delivered (4) Asthma Assessment and Plan s/p primary LSTC for tachycardia POD #0 Discharge Planning routine Attending Attestation pt seen by Grace Soto MD Oct 06, 2016 09:30
[2016-10-06] MEDS: ALBUTEROL SULFATE 90 MCG/ACT HFA 18 GM INHALER INH PRN ×2 (10:20→13:30)
[2016-10-06] MEDS ORDERED: OXYTOCIN 30 UNITS-500ML PREMIX 500 ML IV PRN (11:00)
[2016-10-06] MEDS: IBUPROFEN 600 MG TAB PO PRN ×2 (11:12→18:19)
[2016-10-06] MEDS: DOCUSATE SODIUM 50 MG/SENNA 8.6 MG TAB PO PRN (21:50)
[2016-10-07] VITALS: BP 114/69; PULSE 93; RESP 18; TEMP 98.2
[2016-10-07] MEDS: IBUPROFEN 600 MG TAB PO PRN ×4 (02:11→21:25)
[2016-10-07] MEDS: oxyCODONE/ACETAMINOPHEN 5 MG/325 MG TAB PO PRN ×4 (05:11→21:27)
[2016-10-07 06:34] LABS: AUTOMATED NEUTROPHIL # 11.3 TH/MM3 (1.8-7.7); BASOPHIL % 0.1 % (0.0-2.0); EOSINOPHIL % 0.3 % (0.0-4.0); HEMATOCRIT 33.5 % (35.0-46.0); HEMO FLAGS DIFF FINAL; LYMPH % 9.4 % (9.0-44.0); LYMPHOCYTE # 1.3 TH/MM3 (1.0-4.8); MEAN CELL VOLUME 92.9 FL (80.0-100.0); MEAN CORPUSCULAR HEMOGLOBIN 30.8 PG (27.0-34.0); MEAN CORPUSCULAR HGB CONC 33.2 % (32.0-36.0); MONO % 5.1 % (0.0-8.0); NEUT % 85.1 % (16.0-70.0); PLATELET COUNT 121 TH/MM3 (150-450); RED CELL DISTRIBUTION WIDTH 13.3 % (11.6-17.2); WHITE BLOOD COUNT 13.3 TH/MM3 (4.0-11.0)
[2016-10-07 07:55] VITALS: BP 100/69; PULSE 93; RESP 18; TEMP 98.3
[2016-10-07] MEDS: INSULIN NovoLIN REGULAR SUPPLEMENTAL SCALE SQ SCH (08:00)
[2016-10-07] MEDS: DOCUSATE SODIUM 50 MG/SENNA 8.6 MG TAB PO PRN ×2 (09:23→21:25)
--- NOTE | 2016-10-07 10:07 | HHI.OB ---
Subjective Post Operative Day: 1 Remarks pt doing better after straight cath x1 last night, has had issues with urinary retention prior to , FS normal yesterday will D/C Objective Vitals/I&O Vital Signs Date Time Temp Pulse Resp B/P Pulse Ox O2 Delivery O2 Flow Rate FiO2 10/07/16 07:55 98.3 93 18 10/07/16 07:55 100/69 10/07/16 00:00 98.2 93 18 114/69 10/06/16 21:00 99.2 112 18 129/71 10/06/16 20:00 98.8 115 20 133/78 10/06/16 15:40 98.8 18 10/06/16 15:40 101 107/62 10/06/16 14:40 18 10/06/16 13:00 18 10/06/16 10:25 99 Result Diagram: 10/07/16 0610 Objective Remarks GENERAL: Well-nourished, well-developed patient. CARDIOVASCULAR: Regular rate and rhythm without murmurs, gallops, or rubs. RESPIRATORY: Breath sounds equal bilaterally. No accessory muscle use. ABDOMEN/GI: Abdomen soft, non-tender, bowel sounds present. Incision: dressing Clean, dry and intact. Fundus: Firm, non-tender at umbilicus. GENITOURINARY: Light to moderate bleeding. EXTREMITIES: No cyanosis or edema, non-tender, without signs of DVT. Medications and IVs Current Medications Medications (Trade) Dose Ordered Sig/Dilma Route Start Time Stop Time Status Last Admin (NS Flush) 2 ml BID IV FLUSH 10/06/16 09:00 (NS Flush) 2 ml UNSCH PRN IV FLUSH 10/06/16 01:00 10/06/16 05:22 (Mylicon Chew) 80 mg QID PRN PO 10/06/16 01:00 (Motrin) 600 mg Q6H PRN PO 10/06/16 01:00 10/07/16 09:23 (Percocet 5-325 Mg) 1 tab Q4H PRN PO 10/06/16 01:00 (Percocet 5-325 Mg) 2 tab Q4H PRN PO 10/06/16 01:00 10/07/16 09:23 (Anitra-Colace) 2 tab Q12H PRN PO 10/06/16 01:00 10/07/16 09:23 (Ambien) 5 mg HS PRN PO 10/06/16 01:00 (M-M-R Ii Inj) 0.5 ml ONCE ONCE SQ 10/07/16 16:00 10/07/16 16:01 (Boostrix Inj) 0.5 ml ONCE ONCE IM 10/07/16 16:00 10/07/16 16:01 10/06/16 21:53 (Zofran Inj) 4 mg Q6H PRN IV PUSH 10/06/16 01:00 (NovoLIN R SUPPLEMENTAL SCALE) 1 TIDAC SQ 10/06/16 08:00 (Ventolin Hfa Inh) 2 puff Q6HR PRN INH 10/06/16 01:00 10/06/16 13:30 Assessment/Plan Problem List: (1) 38 weeks gestation of (2) Gestational diabetes (3) delivery delivered (4) Asthma Assessment and Plan s/p primary LSTC for tachycardia POD #1 remove chirag prior to discharge Discharge Planning routine Attending Attestation pt seen by Grace Soto MD Oct 07, 2016 10:07
[2016-10-07] MEDS: SODIUM CHLORIDE 0.9% FLUSH 10 ML FLUSH IV FLUSH SCH (10:40)
[2016-10-07] MEDS ORDERED: MEASLES, MUMPS, RUBELLA VACCINE 0.5 ML VIAL SQ ONE (16:00)
[2016-10-07] MEDS ORDERED: DIPHTH/TETANUS/ACEL PERTUSSIS (BOOSTER) 0.5 ML VIAL/PFS IM ONE (16:00)
[2016-10-07 22:00] VITALS: BP 121/89; PULSE 89; RESP 18; TEMP 98.1
[2016-10-08] MEDS: oxyCODONE/ACETAMINOPHEN 5 MG/325 MG TAB PO PRN ×5 (01:37→23:46)
[2016-10-08] MEDS: IBUPROFEN 600 MG TAB PO PRN ×3 (04:13→20:29)
[2016-10-08] MEDS ORDERED: SENN1TAB PO (09:13)
[2016-10-08] MEDS ORDERED: OXYC1TAB63 PO (09:13)
[2016-10-08] MEDS ORDERED: IBUP-232 PO (09:13)
--- NOTE | 2016-10-08 09:13 | HHI.OB ---
Subjective Post Operative Day: 2 Remarks s/p unscheduled primary LTCD for NRFHTs/maternal & tachy Objective Vitals/I&O Vital Signs Date Time Temp Pulse Resp B/P Pulse Ox O2 Delivery O2 Flow Rate FiO2 10/07/16 22:00 89 18 121/89 10/07/16 22:00 98.1 Result Diagram: 10/07/16 0610 Objective Remarks GENERAL: Well-nourished, well-developed patient. Slow moving; sore. CARDIOVASCULAR: Regular rate and rhythm without murmurs, gallops, or rubs. RESPIRATORY: Breath sounds equal bilaterally. No accessory muscle use. ABDOMEN/GI: Abdomen soft, non-tender, bowel sounds present. Incision: Clean, dry and intact. some mild edema surrounding incisional skin. [place] in place. Fundus: Firm, non-tender at umbilicus. GENITOURINARY: Light to moderate bleeding. EXTREMITIES: No cyanosis or edema, non-tender, without signs of DVT. Medications and IVs Current Medications Medications (Trade) Dose Ordered Sig/Dilma Route Start Time Stop Time Status Last Admin (NS Flush) 2 ml BID IV FLUSH 10/06/16 09:00 (NS Flush) 2 ml UNSCH PRN IV FLUSH 10/06/16 01:00 10/06/16 05:22 (Mylicon Chew) 80 mg QID PRN PO 10/06/16 01:00 (Motrin) 600 mg Q6H PRN PO 10/06/16 01:00 10/08/16 04:13 (Percocet 5-325 Mg) 1 tab Q4H PRN PO 10/06/16 01:00 10/08/16 08:12 (Percocet 5-325 Mg) 2 tab Q4H PRN PO 10/06/16 01:00 10/08/16 01:37 (Anitra-Colace) 2 tab Q12H PRN PO 10/06/16 01:00 10/07/16 21:25 (Ambien) 5 mg HS PRN PO 10/06/16 01:00 (Zofran Inj) 4 mg Q6H PRN IV PUSH 10/06/16 01:00 (NovoLIN R SUPPLEMENTAL SCALE) 1 TIDAC SQ 10/06/16 08:00 (Ventolin Hfa Inh) 2 puff Q6HR PRN INH 10/06/16 01:00 10/06/16 13:30 Assessment/Plan Problem List: (1) delivery delivered (2) 38 weeks gestation of (3) Gestational diabetes (4) Asthma Assessment and Plan s/p primary LSTC for tachycardia POD #2 not yet meeting d/c criteria ambulate more today watch UOP routine d/c planning for tmrw if meets criteria d/c chirag prior to d/c Discharge Planning routine Evelin Holden MD Oct 08, 2016 09:13
[2016-10-08] MEDS: ALBUTEROL SULFATE 90 MCG/ACT HFA 18 GM INHALER INH PRN (10:00)
[2016-10-08] MEDS ORDERED: ONDANSETRON ODT 4 MG TAB PO PRN (12:45)
[2016-10-09] MEDS: IBUPROFEN 600 MG TAB PO PRN ×2 (03:22→09:33)
[2016-10-09] MEDS: oxyCODONE/ACETAMINOPHEN 5 MG/325 MG TAB PO PRN ×2 (03:58→08:04)
[2016-10-09] MEDS: DOCUSATE SODIUM 50 MG/SENNA 8.6 MG TAB PO PRN (04:04)
[2016-10-09] MEDS: INSULIN NovoLIN REGULAR SUPPLEMENTAL SCALE SQ SCH (08:00)
--- NOTE | 2016-10-09 08:34 | HHI.OB ---
Subjective Post Operative Day: 3 Remarks asthma problematic pepito out doing well will not address diabetes at this time see in one week Objective Result Diagram: 10/07/16 0610 Objective Remarks GENERAL: Well-nourished, well-developed patient. Slow moving; sore. CARDIOVASCULAR: Regular rate and rhythm without murmurs, gallops, or rubs. RESPIRATORY: Breath sounds equal bilaterally. No accessory muscle use. ABDOMEN/GI: Abdomen soft, non-tender, bowel sounds present. Incision: Clean, dry and intact. some mild edema surrounding incisional skin. [place] in place. Fundus: Firm, non-tender at umbilicus. GENITOURINARY: Light to moderate bleeding. EXTREMITIES: No cyanosis or edema, non-tender, without signs of DVT. Medications and IVs Current Medications Medications (Trade) Dose Ordered Sig/Dilma Route Start Time Stop Time Status Last Admin (NS Flush) 2 ml BID IV FLUSH 10/06/16 09:00 (NS Flush) 2 ml UNSCH PRN IV FLUSH 10/06/16 01:00 10/06/16 05:22 (Mylicon Chew) 80 mg QID PRN PO 10/06/16 01:00 (Motrin) 600 mg Q6H PRN PO 10/06/16 01:00 10/09/16 03:22 (Percocet 5-325 Mg) 1 tab Q4H PRN PO 10/06/16 01:00 10/09/16 08:04 (Percocet 5-325 Mg) 2 tab Q4H PRN PO 10/06/16 01:00 10/08/16 23:46 (Anitra-Colace) 2 tab Q12H PRN PO 10/06/16 01:00 10/09/16 04:04 (Ambien) 5 mg HS PRN PO 10/06/16 01:00 (Zofran Inj) 4 mg Q6H PRN IV PUSH 10/06/16 01:00 (NovoLIN R SUPPLEMENTAL SCALE) 1 TIDAC SQ 10/06/16 08:00 (Ventolin Hfa Inh) 2 puff Q6HR PRN INH 10/06/16 01:00 10/08/16 10:00 (Zofran Odt) 4 mg Q4H PRN PO 10/08/16 12:45 10/08/16 12:41 Assessment/Plan Problem List: (1) delivery delivered (2) 38 weeks gestation of (3) Gestational diabetes (4) Asthma Assessment and Plan s/p primary LSTC for tachycardia home today POD 3 with follow up with [facility] in on e week Discharge Planning routine Luciana Downing MD Oct 09, 2016 08:34
--- NOTE | 2016-10-09 08:35 | HHI.DCPOC ---
Discharge Care Plan Report Symptoms to Your Doctor -Temperate above 100.5 degrees -Redness, of incision or excessive or foul smelling drainage -Unusual pain or calf pain -Increased vaginal bleeding -Painful or difficulty urinating -Feelings of extreme sadness or anxiety after 2 weeks Goals to Promote Your Health * To prevent worsening of your condition and complications * To maintain your health at the optimal level Directions to Meet Your Goals Take your medications as prescribed Follow your dietary instruction Follow activity as directed Ensure plenty of rest for recovery Drink fluids for hydration Keep your appointments as scheduled Take your immunizations and boosters as scheduled If your symptoms worsen call your PCP, if no PCP go to Urgent Care Center or Emergency Room Smoking is Dangerous to Your Health. Avoid second hand smoke Call the 24-hour crisis hotline for domestic abuse at Luciana Downing MD Oct 09, 2016 08:35
--- NOTE | 2016-10-10 08:24 | MP ---
cc: WALDO NUNEZ MD DATE OF SURGERY 10/06/2016 PREOPERATIVE DIAGNOSIS Intrauterine at term, spontaneous rupture of membranes. tachycardia, gestational diabetic. POSTOPERATIVE DIAGNOSIS Intrauterine at term, spontaneous rupture of membranes. tachycardia, gestational diabetic. PROCEDURE Primary lower segment transverse section via Pfannenstiel skin incision. SURGEON Dr. Nunez ANESTHESIA Spinal FLUIDS 1000 cc crystalloid ESTIMATED BLOOD LOSS 500 cc URINE OUTPUT 300 cc clear yellow at the end of the procedure. FINDINGS A live female was delivered vertex presentation, 's 8 at one minute and 9 at five minutes. weight was 8 pounds 1 ounce. PROCEDURE The patient was taken to the operating room where spinal anesthesia was found to be adequate. She was then prepped and draped in the normal sterile fashion in the dorsal supine position with a leftward tilt. A Pfannenstiel skin incision was made with a scalpel and carried down to the underlying layer of fascia. The fascia was nicked in the midline and the incision was extended laterally with curved Garrison scissors. Attention was turned to the inferior aspect of the incision which was grasped with Kassy clamps, elevated and the rectus muscles dissected off sharply. Attention was turned to the superior aspect of the incision which was grasped with Kassy clamps, elevated and the rectus muscles dissected off sharply. The rectus muscles were in the midline and the peritoneum was identified, grasped with Grace clamps, elevated and entered sharply with Metzenbaum scissors. This incision was extended superiorly and inferiorly with good visualization of the bladder. The bladder blade was inserted. The vesicouterine peritoneum was identified, grasped with pickups and entered sharply with Metzenbaum scissors. This incision was extended laterally and bladder flap created digitally. The lower uterine segment was incised in a transverse fashion with a scalpel. The incision was extended laterally with bandage scissors. Clear amniotic fluid was noted. The vertex was delivered. Oral and nasopharynx were bulb suctioned with a syringe. Nuchal cord x1 was reduced. The shoulders were delivered atraumatically. The cord was clamped x2 and cut. The infant was handed off to the waiting nurse. The placenta was delivered manually. Uterus was cleared of all clots and debris. Uterine incision was repaired in two layers with one Vicryl. Hemostasis was assured. The gutters were cleared of all clots and debris. The fascia was repaired in a running fashion with 0 Vicryl. The skin was closed with chirag. A pressure dressing was applied. The patient was transferred to recovery room in stable condition. Sponge, lap, needle and instrument counts were correct x3. MD RADHA Licona/FLAKITO /12:59 AM /8:13 AM STEVE
== END 2016-10-09 12:01 | disposition home or self-care (01) | DRG 766 ==
LOC: HOBED 20:05 → H2EA 21:38 → H1EA 10-06 03:05
PROVIDERS: ADMIT Obstetrics & Gynecology; ATTEND Obstetrics & Gynecology
PROC: 10D00Z1 Extraction of Products of Conception, Low, Open Approach (ICD-10-PCS; principal; 2016-10-06)
DX: O76 Abnormality in fetal heart rate and rhythm complicating labor and delivery (principal); O24.425 Gestational diabetes mellitus in childbirth, controlled by oral hypoglycemic drugs; Z79.84 Long term (current) use of oral hypoglycemic drugs; O99.52 Diseases of the respiratory system complicating childbirth; J45.909 Unspecified asthma, uncomplicated; O36.63X0 Maternal care for excessive fetal growth, third trimester, not applicable or unspecified; O99.89 Other specified diseases and conditions complicating pregnancy, childbirth and the puerperium; R33.9 Retention of urine, unspecified; Z37.0 Single live birth; Z3A.38 38 weeks gestation of pregnancy
CPT/HCPCS: 81001; 82948; 84112; 85025; 86850; 86900; 86901; 88307; 90715; 94664; 99284; 99285; J0131; J1200; J1885; J2274; J2405; J2590; J3105; J7120; J7613

== ENCOUNTER 2017-01-17 13:08 | Emergency (ER) | payer MEDICAID, OTHER ==
[~2017-01-17 13:08] MED LIST changes: +IBUP-232 PO; +OXYC1TAB63 PO; +SENN1TAB PO
[2017-01-17 13:10] VITALS: BP 129/81; PULSE 89; RESP 24; TEMP 98.4; O2SAT 100
--- NOTE | 2017-01-17 13:22 | PD ---
Physical Exam Time Seen by Provider: 13:21 Narrative 26 y/o female with pain inferior to left breast, worse with inspiration,started last night. Vital signs reviewed. Seen at triage desk. Awaiting bed placement. Data Data Last Documented VS Vital Signs Date Time Temp Pulse Resp B/P Pulse Ox O2 Delivery O2 Flow Rate FiO2 01/17/17 13:10 98.4 89 24 129/81 100 Room Air [facility] Medical Record Reviewed: Yes Supervised Visit with MIRI: Peter Duke Jan 17, 2017 13:22
[2017-01-17] MEDS ORDERED: VIST50CA PO (13:44)
[2017-01-17] MEDS ORDERED: JOLI0.35 PO (13:44)
[2017-01-17] MEDS ORDERED: FLUT1INH7 INH (13:44)
[2017-01-17] MEDS ORDERED: SODIUM CHLORIDE 0.9% FLUSH 10 ML FLUSH IVF PRN (13:45)
[2017-01-17] MEDS ORDERED: SODIUM CHLOR 0.9% 1000 ML INJ 1,000 ML IV ONE (13:45)
[2017-01-17] MEDS ORDERED: KETOROLAC TROMETHAMINE 30 MG/ML (IVP) VIAL IV PUSH ONE (13:45)
[2017-01-17] MEDS ORDERED: RESP: ALBUTEROL 2.5 MG/IPRATROPIUM 0.5 MG NEB (SCH) INH ONE (13:45)
--- NOTE | 2017-01-17 13:46 | PD ---
HPI Chief Complaint: Respiratory Symptoms Time Seen by Provider: 13:46 Travel History International Travel<30 days: No Contact w/Intl Traveler<30days: No Traveled to known affect area: No History of Present Illness HPI 26-year-old female presents to the emergency department for evaluation of pain under her left breast that started last night around has been worsening since. Patient states the pain is worse with inspiration and movement. Patient denies similar pain in the past. However, she does state that she had a history of a pneumothorax due to asthma. She states she has used her albuterol inhaler without any improvement. She states she does not feel like a typical asthma attack. Patient denies any fevers or chills. She denies any history of DVT or PE. She has had no recent surgery or travel within the past month. No hemoptysis or leg edema. She is on control pills. Patient denies . No abdominal pain. No nausea, vomiting, diarrhea. Patient has been lifting her 3 month old baby, but no unusual heavy lifting recently. PFS Past Medical History Asthma: Yes Anxiety: Yes Diabetes: Yes (GESTATIONAL) Patient Takes Glucophage: No Diminished Hearing: No Respiratory: Yes (ASTHMA/ pneumothorax hx) Tetanus Vaccination: < 5 Years Influenza Vaccination: Yes ?: Not : 1 Para: 1 Past Surgical History Appendectomy: Yes Section: Yes Cholecystectomy: Yes Gynecologic Surgery: Yes (c section) Social History Alcohol Use: No (pt denies ) Tobacco Use: No (pt denies ) Substance Use: No (pt denies ) Allergies-Medications (Allergen,Severity, Reaction): Coded Allergies: Pecan (Verified Allergy, Severe, Rash, THROAT SWELLS, 01/17/17) Reported Meds & Prescriptions Reported Meds & Active Scripts Active Reported Jolivette-35 (Norethindrone) 0.35 Mg Tab 1 Tab PO DAILY Vistaril (Hydroxyzine Pamoate) 50 Mg Cap 50 Mg PO QID PRN Breo Ellipta Inh (Fluticasone/Vilanterol) 200-25 Mcg/Act Inh 1 Puff INH DAILY Use daily at the same time. Proair Hfa 8.5 GM Inh (Albuterol Sulfate) 90 Mcg/Act Aer 2 Puff INH Q4-6H PRN 108 mcg/actuation Review of Systems Except as stated in HPI: all other systems reviewed are Neg Physical Exam Narrative GENERAL: Well-nourished, well-developed female patient, ambulatory. Afebrile. SKIN: Focused skin assessment warm/dry. HEAD: Normocephalic. Atraumatic. EYES: No scleral icterus. No injection or drainage. NECK: Supple, trachea midline. No JVD or lymphadenopathy. CARDIOVASCULAR: Regular rate and rhythm without murmurs, gallops, or rubs. RESPIRATORY: Breath sounds equal bilaterally. No accessory muscle use. Patient is taking shallow breaths due to pain. However, no wheezes are noted. Lungs sounds are diminished throughout. GASTROINTESTINAL: Abdomen soft, non-tender, nondistended. MUSCULOSKELETAL: No cyanosis, or edema. Left chest pain is easily reproducible with palpation and movement. BACK: Nontender without obvious deformity. No CVA tenderness. Data Data Last Documented VS Vital Signs Date Time Temp Pulse Resp B/P Pulse Ox O2 Delivery O2 Flow Rate FiO2 01/17/17 15:35 97.8 87 18 100/58 100 Room Air 01/17/17 14:23 21 Orders Electrocardiogram (01/17/17 13:42) Basic Metabolic Panel (Bmp) (01/17/17 13:42) Ckmb (Isoenzyme) Profile (01/17/17 13:42) Complete Blood Count With Diff (01/17/17 13:42) D-Dimer (01/17/17 13:42) Magnesium (Mg) (01/17/17 13:42) Troponin I (01/17/17 13:42) Chest, Single Ap (01/17/17 13:42) Ecg Monitoring (01/17/17 13:42) Bilateral Bp Monitoring (01/17/17 13:42) Iv Access Insert/Monitor (01/17/17 13:42) Oximetry (01/17/17 13:42) Oxygen Administration (01/17/17 13:42) Sodium Chloride 0.9% Flush (Ns Flush) (01/17/17 13:45) Ed Urine Pregnancytest Poc (01/17/17 13:42) Sodium Chlor 0.9% 1000 Ml Inj (Ns 1000 M (01/17/17 13:45) Ketorolac Inj (Toradol Inj) (01/17/17 13:45) Albuterol-Ipratropium Neb (Duoneb Neb) (01/17/17 13:45) Labs Laboratory Tests Test 01/17/17 01/17/17 13:48 13:55 Sodium Level 142 MEQ/L Potassium Level 3.7 MEQ/L Chloride Level 107 MEQ/L Carbon Dioxide Level 26.9 MEQ/L Anion Gap 8 MEQ/L Blood Urea Nitrogen 12 MG/DL Creatinine 0.71 MG/DL Estimat Glomerular Filtration 101 ML/MIN Rate Random Glucose 108 MG/DL Calcium Level 9.1 MG/DL Magnesium Level 1.9 MG/DL Total Creatine Kinase 79 U/L Troponin I LESS THAN 0.02 NG/ML White Blood Count 6.5 TH/MM3 Red Blood Count 4.19 MIL/MM3 Hemoglobin 12.5 GM/DL Hematocrit 36.3 % Mean Corpuscular Volume 86.7 FL Mean Corpuscular Hemoglobin 29.9 PG Mean Corpuscular Hemoglobin 34.4 % Concent Red Cell Distribution Width 12.5 % Platelet Count 224 TH/MM3 Mean Platelet Volume 8.8 FL Neutrophils (%) (Auto) 66.7 % Lymphocytes (%) (Auto) 26.0 % Monocytes (%) (Auto) 6.2 % Eosinophils (%) (Auto) 0.9 % Basophils (%) (Auto) 0.2 % Neutrophils # (Auto) 4.4 TH/MM3 Lymphocytes # (Auto) 1.7 TH/MM3 Monocytes # (Auto) 0.4 TH/MM3 Eosinophils # (Auto) 0.1 TH/MM3 Basophils # (Auto) 0.0 TH/MM3 CBC Comment DIFF FINAL Differential Comment D-Dimer Quantitative (PE/DVT) LESS THAN 0.19 MG/L FEU [facility] Medical Decision Making Medical Screen Exam Complete: Yes Emergency Medical Condition: Yes Medical Record Reviewed: Yes Interpretation(s) chest x-ray = CONCLUSION: No acute disease. Differential Diagnosis Muscle strain versus pneumothorax versus PE versus ACS versus asthma exacerbation Narrative Course 26-year-old female presents to the emergency department for evaluation of left chest pain worse with palpation and movement history of pneumothorax and asthma. EKG shows sinus rhythm, heart rate 74, no acute ST changes. CBC, BMP, CK, troponin, d-dimer, magnesium are ordered and pending. Chest x-ray is ordered and pending. Urine test is negative. Patient is given Toradol 30 mg IV, normal saline 1 L IV bolus. Patient is given duoneb x1. CBC is unremarkable. BMP is unremarkable. CK is 79. Troponin is less than 0.02. Magnesium is 1.9. D dimer is less than 0.19. Chest x-ray shows no acute disease. Upon reexamination, patient states she is feeling better. Patient is stable for discharge. I discussed the findings with my attending physician, Dr. Faustin, who agrees with plan and disposition. Patient is take ibuprofen over- the-counter as needed for pain. She is return for any acute worsening of symptoms. Patient verbalizes agreement and understanding. Diagnosis Primary Impression: Chest wall muscle strain Qualified Code: S29.011A - Chest wall muscle strain, initial encounter Referrals: Primary Care Physician call for appointment Patient Instructions: General Instructions, Muscle Strain (ED) Additional Instructions: Took ibuprofen every 6-8 hours as needed for pain. Follow-up with your primary care physician. Return to the emergency department for any acute worsening of symptoms. Med/Other Pt SpecificInfo: No Change to Meds Disposition: 01 DISCHARGE HOME Condition: Stable Ramona Ortega Jan 17, 2017 13:46
[2017-01-17 13:47] VITALS: RESP 18; O2SAT 100
[2017-01-17 13:51] VITALS: BP_SYST 103; BP_SYST 104; BP_DIAS 60; BP_DIAS 61; PULSE 86; RESP 18; O2SAT 100
[2017-01-17 14:12] LABS: AUTOMATED NEUTROPHIL # 4.4 TH/MM3 (1.8-7.7); BASOPHIL % 0.2 % (0.0-2.0); EOSINOPHIL # 0.1 TH/MM3 (0-0.4); EOSINOPHIL % 0.9 % (0.0-4.0); HEMATOCRIT 36.3 % (35.0-46.0); HEMO FLAGS DIFF FINAL; LYMPHOCYTE # 1.7 TH/MM3 (1.0-4.8); MEAN CELL VOLUME 86.7 FL (80.0-100.0); MEAN CORPUSCULAR HEMOGLOBIN 29.9 PG (27.0-34.0); MEAN CORPUSCULAR HGB CONC 34.4 % (32.0-36.0); MONO % 6.2 % (0.0-8.0); NEUT % 66.7 % (16.0-70.0); PLATELET COUNT 224 TH/MM3 (150-450); RED BLOOD COUNT 4.19 MIL/MM3 (4.00-5.30); RED CELL DISTRIBUTION WIDTH 12.5 % (11.6-17.2); WHITE BLOOD COUNT 6.5 TH/MM3 (4.0-11.0)
[2017-01-17 14:23] VITALS: O2SAT 100
[2017-01-17 14:42] LABS: ANION GAP 8 MEQ/L (5-15); BICARBONATE 26.9 MEQ/L (21.0-32.0); BLOOD UREA NITROGEN 12 MG/DL (7-18); CHLORIDE 107 MEQ/L (98-107); GLOMERULAR FILTRATION RATE 101 ML/MIN (>89); MAGNESIUM 1.9 MG/DL (1.5-2.5); POTASSIUM 3.7 MEQ/L (3.5-5.1); SODIUM (NA) 142 MEQ/L (136-145)
--- NOTE | 2017-01-17 14:42 | RADRPT ---
EXAM DATE/TIME: 01/17/2017 14:06 [facility] COMPARISON: No previous studies available for comparison. INDICATIONS : Left lower chest pain. Short of breath. MEDICAL HISTORY : None. SURGICAL HISTORY : None. ENCOUNTER: Initial ACUITY: 1 day PAIN SCORE: 8/10 LOCATION: Left lower chest FINDINGS: A single view of the chest demonstrates the lungs to be symmetrically aerated without evidence of mas s, infiltrate or effusion. The cardiomediastinal contours are unremarkable. Osseous structures are intact. CONCLUSION: No acute disease. Beck Perkins Jr., MD on January 17, 2017 at 14:40 Board Certified Radiologist. This report was verified electronically.
[2017-01-17 14:48] LABS: CREATINE KINASE 79 U/L (26-192)
[2017-01-17 15:35] VITALS: BP 100/58; PULSE 87; RESP 18; TEMP 97.8; O2SAT 100
[2017-01-17 15:50] VITALS: BP 100/62; TEMP 97.8
--- NOTE | 2017-01-19 11:10 | EKG ---
Date Performed: 01/17/2017 Time Performed: 14:06:55 PTAGE: 26 years EKG: Sinus rhythm WITH MARKED SINUS ARRHYTHMIA BORDERLINE ECG NO PREVIOUS TRACING DOCTOR: Zaki Dorsey Interpretating Date/Time 01/19/2017 11:01:08
== END 2017-01-17 15:50 | disposition home or self-care (01) ==
LOC: NEPE 13:08
DX: S29.011A Strain of muscle and tendon of front wall of thorax, initial encounter (principal); J45.909 Unspecified asthma, uncomplicated; F41.9 Anxiety disorder, unspecified; Z79.899 Other long term (current) drug therapy; X58.XXXA Exposure to other specified factors, initial encounter
CPT/HCPCS: 71010; 80048; 82550; 83735; 84484; 84703; 85025; 85379; 93005; 94664; 96361; 96374; 99285; J1885; J7030

== ENCOUNTER 2017-05-28 22:20 | Emergency (ER) | payer MEDICAID ==
[~2017-05-28] VITALS: Ht 149.9 cm; Wt 62.0 kg
[~2017-05-28 22:20] MED LIST changes: +FLUT1INH7 INH; -IBUP-232 PO; +JOLI0.35 PO; -M2 M100C; -OXYC1TAB63 PO; -PRENCAP PO; -SENN1TAB PO; +VIST50CA PO
[2017-05-28 22:22] VITALS: BP 113/82; PULSE 62; RESP 16; TEMP 97.9; O2SAT 99
--- NOTE | 2017-05-28 23:07 | PD ---
HPI Chief Complaint: Cold / Flu Symptoms Time Seen by Provider: 22:46 Travel History International Travel<30 days: No Contact w/Intl Traveler<30days: No Traveled to known affect area: No History of Present Illness HPI 26-year-old white female presents from her apartment with a one-month history of feeling general malaise, some nausea, weakness and lack of energy. She states that she is 6 months and breast-feeding. She has some cold symptoms here in the past week which have consisted of congestion, cough, and sore throat. She noticed an area of white on her right tonsil tonight and comes in for evaluation. She denies any vomiting. No abdominal pain or urinary symptoms. PFSH Past Medical History Asthma: Yes Anxiety: Yes Diabetes: No (GESTATIONAL) Diminished Hearing: No Respiratory: Yes (ASTHMA / pneumothorax hx) Tetanus Vaccination: < 5 Years Influenza Vaccination: No ?: Unknown : 1 Para: 1 Past Surgical History Appendectomy: Yes Section: Yes Cholecystectomy: Yes Gynecologic Surgery: Yes (c section) Social History Alcohol Use: No (pt denies ) Tobacco Use: No (pt denies ) Substance Use: No (pt denies ) Allergies-Medications (Allergen,Severity, Reaction): Coded Allergies: pecan nut (Verified Allergy, Severe, Rash, THROAT SWELLS, 05/28/17) Reported Meds & Prescriptions Reported Meds & Active Scripts Active Reported Jolivette-35 (Norethindrone) 0.35 Mg Tab 1 Tab PO DAILY Vistaril (Hydroxyzine Pamoate) 50 Mg Cap 50 Mg PO QID PRN Breo Ellipta Inh (Fluticasone/Vilanterol) 200-25 Mcg/Act Inh 1 Puff INH DAILY Use daily at the same time. Proair Hfa 8.5 GM Inh (Albuterol Sulfate) 90 Mcg/Act Aer 2 Puff INH Q4-6H PRN 108 mcg/actuation Review of Systems General / Constitutional: No: Fever Eyes: No: Visual changes HENT: Positive: Sore Throat, No: Headaches Cardiovascular: No: Chest Pain or Discomfort Respiratory: Positive: Cough, No: Shortness of Breath Gastrointestinal: Positive: Nausea, No: Abdominal Pain Genitourinary: No: Dysuria Musculoskeletal: No: Pain Skin: No Rash Neurologic: Positive: Other, No: Weakness, Headache Psychiatric: No: Depression Endocrine: No: Polydipsia Hematologic/Lymphatic: No: Easy Bruising Physical Exam Narrative GENERAL: Well-developed, well-nourished in no acute distress. Nontoxic appearing. HEAD: Normocephalic, atraumatic. EYES: Pupils equal round and reactive. Extraocular motions intact. No scleral icterus. No injection or drainage. ENT: TMs clear without erythema. The external auditory canals clear. Nose: clear . Posterior pharynx is pink and moist. No tonsillar edema or exudate. Patient does have a right tonsillar stone. Uvula midline. Airway patent. NECK: Trachea midline.Supple, nontender, moves head freely. No central bony tenderness or spasm. CARDIOVASCULAR: Regular rate and rhythm without murmurs, gallops, or rubs. RESPIRATORY: Clear to auscultation. Breath sounds equal bilaterally. No wheezes , rales, or rhonchi. GASTROINTESTINAL: Abdomen soft, non-tender, nondistended. No hepato-splenomegaly , or palpable masses. No guarding. EXTREMITIES: No clubbing, cyanosis, or edema. No joint tenderness, effusion, or edema noted. BACK: Nontender without deformity or crepitance. No flank tenderness. Data Data Last Documented VS Vital Signs Date Time Temp Pulse Resp B/P (MAP) Pulse Ox O2 Delivery O2 Flow Rate FiO2 05/28/17 22:22 97.9 62 16 113/82 (92) 99 Orders Orders Group A Rapid Strep Screen (05/28/17 22:51) Ed Urine Pregnancytest Poc (05/28/17 22:51) Strep Culture (Group A) (05/28/17 23:00) [facility] Medical Decision Making Medical Screen Exam Complete: Yes Emergency Medical Condition: Yes Medical Record Reviewed: Yes Interpretation(s) HCG: Negative Group A strep negative Differential Diagnosis Differential diagnoses: , depression, URI, strep throat, viral syndrome, asthma Narrative Course We will check the patient's status and perform a strep throat test. Patient is informed of the negative urine and strep. She is advised to perform increase fluids and consider close follow-up with a doctor. Diagnosis Primary Impression: Weakness Additional Impression: general malaise Patient Instructions: General Instructions Additional Instructions: Rest. Increase fluids. Consider taking a multivitamin daily. Follow-up with your tenterer or a primary care doctor in 1 week. Return to the ER for emergencies. Disposition: 01 DISCHARGE HOME Condition: Stable Jorje Meraz May 28, 2017 23:07
== END 2017-05-28 23:44 | disposition home or self-care (01) ==
LOC: NEPD 22:20
DX: R53.83 Other fatigue (principal); R53.81 Other malaise; J02.9 Acute pharyngitis, unspecified; R11.0 Nausea; R09.81 Nasal congestion; R05 Cough; J45.909 Unspecified asthma, uncomplicated; F41.9 Anxiety disorder, unspecified; Z79.899 Other long term (current) drug therapy
CPT/HCPCS: 84703; 87081; 87880; 99283

== ENCOUNTER 2017-06-30 05:19 | Emergency (ER) | payer MEDICAID ==
[~2017-06-30] VITALS: Ht 149.9 cm; Wt 59.0 kg
[2017-06-30 05:22] VITALS: BP 103/63; PULSE 74; RESP 14; TEMP 98.5; O2SAT 100
[2017-06-30 05:34] VITALS: RESP 15; O2SAT 100
--- NOTE | 2017-06-30 05:43 | PD ---
HPI Chief Complaint: Alcohol/Drug Intoxication Time Seen by Provider: 05:23 Travel History International Travel<30 days: No Contact w/Intl Traveler<30days: No Traveled to known affect area: No History of Present Illness HPI To 26 old woman who presents to the emergency department complaining of chest pain after her apparently did CPR on her kids he felt that she was pulseless. They apparently had both been drinking because it was their anniversary. She denies any illicit drug use. Her only Complaint now is chest pain and tenderness in her sternum. She otherwise had been feeling generally well and healthy. Denies any other recent illness or injury. History Past Medical History Medical History: Denies Significant Hx : 1 Para: 1 Social History Alcohol Use: Yes (OCCASIONALLY) Tobacco Use: No (pt denies ) Allergies-Medications (Allergen,Severity, Reaction): Coded Allergies: pecan nut (Verified Allergy, Severe, Rash, THROAT SWELLS, 06/30/17) Reported Meds & Prescriptions Reported Meds & Active Scripts Active Reported Jolivette-35 (Norethindrone) 0.35 Mg Tab 1 Tab PO DAILY Vistaril (Hydroxyzine Pamoate) 50 Mg Cap 50 Mg PO QID PRN Breo Ellipta Inh (Fluticasone/Vilanterol) 200-25 Mcg/Act Inh 1 Puff INH DAILY Use daily at the same time. Proair Hfa 8.5 GM Inh (Albuterol Sulfate) 90 Mcg/Act Aer 2 Puff INH Q4-6H PRN 108 mcg/actuation Review of Systems Except as stated in HPI: all other systems reviewed are Neg Physical Exam Narrative GENERAL: 26 old woman, no acute distress. SKIN: Focused skin assessment warm/dry. HEAD: Atraumatic. Normocephalic. EYES: Pupils equal and round. No scleral icterus. No injection or drainage. ENT: No nasal bleeding or discharge. Mucous membranes pink and moist. NECK: Trachea midline. No JVD. CARDIOVASCULAR: Regular rate and rhythm. No murmur appreciated. Significant sternal tenderness. RESPIRATORY: No accessory muscle use. Clear to auscultation. Breath sounds equal bilaterally. GASTROINTESTINAL: Abdomen soft, non-tender, nondistended. Hepatic and splenic margins not palpable. MUSCULOSKELETAL: No obvious deformities. No clubbing. No cyanosis. No edema. NEUROLOGICAL: Awake and alert. No obvious cranial nerve deficits. Motor grossly within normal limits. Normal speech. PSYCHIATRIC: Appropriate mood and affect; insight and judgment normal. Data Data Last Documented VS Vital Signs Date Time Temp Pulse Resp B/P (MAP) Pulse Ox O2 Delivery O2 Flow Rate FiO2 06/30/17 05:34 15 100 Nasal Cannula 2.00 06/30/17 05:22 98.5 74 103/63 (76) Orders Orders Electrocardiogram (06/30/17 05:32) Complete Blood Count With Diff (06/30/17 05:32) Comprehensive Metabolic Panel (06/30/17 05:32) Troponin I (06/30/17 05:32) Chest, Single Ap (06/30/17 05:32) Ecg Monitoring (06/30/17 05:32) Iv Access Insert/Monitor (06/30/17 05:32) Oximetry (06/30/17 05:32) Oxygen Administration (06/30/17 05:32) Sodium Chloride 0.9% Flush (Ns Flush) (06/30/17 05:45) Sodium Chlorid 0.9% 500 Ml Inj (Ns 500 M (06/30/17 05:45) Ketorolac Inj (Toradol Inj) (06/30/17 05:45) Ondansetron Inj (Zofran Inj) (06/30/17 05:45) Beta Hcg (Quant/Titer) (06/30/17 05:32) Labs Laboratory Tests Test 06/30/17 05:35 White Blood Count 5.4 TH/MM3 Red Blood Count 3.77 MIL/MM3 Hemoglobin 11.6 GM/DL Hematocrit 33.6 % Mean Corpuscular Volume 89.3 FL Mean Corpuscular Hemoglobin 30.9 PG Mean Corpuscular Hemoglobin Concent 34.6 % Red Cell Distribution Width 12.3 % Platelet Count 162 TH/MM3 Mean Platelet Volume 9.1 FL Neutrophils (%) (Auto) 53.0 % Lymphocytes (%) (Auto) 34.1 % Monocytes (%) (Auto) 9.5 % Eosinophils (%) (Auto) 3.0 % Basophils (%) (Auto) 0.4 % Neutrophils # (Auto) 2.9 TH/MM3 Lymphocytes # (Auto) 1.8 TH/MM3 Monocytes # (Auto) 0.5 TH/MM3 Eosinophils # (Auto) 0.2 TH/MM3 Basophils # (Auto) 0.0 TH/MM3 CBC Comment DIFF FINAL Differential Comment Blood Urea Nitrogen 10 MG/DL Creatinine 0.54 MG/DL Random Glucose 103 MG/DL Total Protein 6.3 GM/DL Albumin 3.4 GM/DL Calcium Level 7.7 MG/DL Alkaline Phosphatase 99 U/L Aspartate Amino Transf (AST/SGOT) 27 U/L Alanine Aminotransferase (ALT/SGPT) 25 U/L Total Bilirubin 0.1 MG/DL Sodium Level 146 MEQ/L Potassium Level 3.5 MEQ/L Chloride Level 115 MEQ/L Carbon Dioxide Level 21.2 MEQ/L Anion Gap 10 MEQ/L Estimat Glomerular Filtration Rate 139 ML/MIN Troponin I LESS THAN 0.02 NG/ML Human Chorionic Gonadotropin, Quant LESS THAN 1 MIU/ML MDM Medical Decision Making Medical Screen Exam Complete: Yes Emergency Medical Condition: Yes Interpretation(s) My review of EKG: Normal sinus rhythm at a rate of 63, normal axis, normal intervals, no acute ischemia. LABS: CBC is unremarkable. CMP generally unremarkable. Troponin negative. HCG negative. Chest x-ray: No acute disease. Differential Diagnosis Sternal pain or fracture, rib fracture, costochondritis, post arrest, arrhythmia , PE, intoxication, other Narrative Course Medical decision making 26 old woman who received CPR from her they're both intoxicated, unclear if she was never pulseless. She now has chest pain that appears to be related to her chest compressions and sternal tenderness. We'll check x-ray labs EKG, reassess. FINAL: 26 year-old woman, boyfriend reports apneic episode associated with some respiratory distress followed by respiratory arrest and pulselessness. Unclear how reliable this is. Patient seems well now. Chest pain seems related to chest compressions. Nonetheless, we'll monitor the emergency department so she igor up some, reassess her, make sure is no evidence of asthma exacerbation or other disease. Likely discharge home for outpatient follow-up. Zaki Sparks MD Jun 30, 2017 05:43
[2017-06-30] MEDS ORDERED: SODIUM CHLORID 0.9% 500 ML INJ 500 ML IV ONE (05:45)
[2017-06-30] MEDS ORDERED: KETOROLAC TROMETHAMINE 30 MG/ML (IVP) VIAL IVP ONE (05:45)
[2017-06-30] MEDS ORDERED: ONDANSETRON HCL 4 MG/2 ML VIAL IV ONE (05:45)
[2017-06-30] MEDS ORDERED: SODIUM CHLORIDE 0.9% FLUSH 10 ML FLUSH IVF PRN (05:45)
[2017-06-30 06:10] LABS: AUTOMATED NEUTROPHIL # 2.9 TH/MM3 (1.8-7.7); BASOPHIL % 0.4 % (0.0-2.0); EOSINOPHIL # 0.2 TH/MM3 (0-0.4); HEMATOCRIT 33.6 % (35.0-46.0); HEMOGLOBIN 11.6 GM/DL (11.6-15.3); LYMPH % 34.1 % (9.0-44.0); LYMPHOCYTE # 1.8 TH/MM3 (1.0-4.8); MEAN CELL VOLUME 89.3 FL (80.0-100.0); MEAN CORPUSCULAR HEMOGLOBIN 30.9 PG (27.0-34.0); MEAN CORPUSCULAR HGB CONC 34.6 % (32.0-36.0); MEAN PLATELET VOLUME 9.1 FL (7.0-11.0); MONO % 9.5 % (0.0-8.0); MONOCYTE # 0.5 TH/MM3 (0-0.9); PLATELET COUNT 162 TH/MM3 (150-450); RED BLOOD COUNT 3.77 MIL/MM3 (4.00-5.30); RED CELL DISTRIBUTION WIDTH 12.3 % (11.6-17.2); WHITE BLOOD COUNT 5.4 TH/MM3 (4.0-11.0)
[2017-06-30 06:21] LABS: ALKALINE PHOSPHATASE 99 U/L (45-117); TOTAL BILIRUBIN ADULT 0.1 MG/DL (0.2-1.0); TOTAL PROTEIN 6.3 GM/DL (6.4-8.2); TROPONIN I LESS THAN 0.02 NG/ML (0.02-0.05)
[2017-06-30 06:22] LABS: ALBUMIN 3.4 GM/DL (3.4-5.0); ALT (GPT) 25 U/L (10-53); AST (GOT) 27 U/L (15-37); BICARBONATE 21.2 MEQ/L (21.0-32.0); BLOOD UREA NITROGEN 10 MG/DL (7-18); CALCIUM 7.7 MG/DL (8.5-10.1); CHLORIDE 115 MEQ/L (98-107); CREATININE 0.54 MG/DL (0.50-1.00); GLOMERULAR FILTRATION RATE 139 ML/MIN (>89); GLUCOSE,RANDOM 103 MG/DL (74-106); SODIUM (NA) 146 MEQ/L (136-145)
--- NOTE | 2017-06-30 06:36 | RADRPT ---
EXAM DATE/TIME: 06/30/2017 05:44 [facility] COMPARISON: CHEST SINGLE AP, January 17, 2017, 14:06. INDICATIONS : Possible aspiration. ETOH. MEDICAL HISTORY : None. SURGICAL HISTORY : None. ENCOUNTER: Initial ACUITY: 1 day PAIN SCORE: Non-responsive. LOCATION: Bilateral chest FINDINGS: A single view of the chest demonstrates the lungs to be symmetrically aerated without evidence of mas s, infiltrate or effusion. The cardiomediastinal contours are unremarkable. Osseous structures are intact. CONCLUSION: No acute disease. Emmanuel Damon MD on June 30, 2017 at 6:34 Board Certified Radiologist. This report was verified electronically.
[2017-06-30 07:00] VITALS: BP 103/63; PULSE 69; RESP 18; O2SAT 100
[2017-06-30] MEDS ORDERED: TRAM50 PO (10:42)
--- NOTE | 2017-06-30 10:42 | PD ---
Data Data Last Documented VS Vital Signs Date Time Temp Pulse Resp B/P (MAP) Pulse Ox O2 Delivery O2 Flow Rate FiO2 06/30/17 10:56 83 18 135/72 (93) 98 06/30/17 07:00 Room Air 06/30/17 05:34 2.00 06/30/17 05:22 98.5 Orders Orders Electrocardiogram (06/30/17 05:32) Complete Blood Count With Diff (06/30/17 05:32) Comprehensive Metabolic Panel (06/30/17 05:32) Troponin I (06/30/17 05:32) Chest, Single Ap (06/30/17 05:32) Ecg Monitoring (06/30/17 05:32) Iv Access Insert/Monitor (06/30/17 05:32) Oximetry (06/30/17 05:32) Oxygen Administration (06/30/17 05:32) Sodium Chloride 0.9% Flush (Ns Flush) (06/30/17 05:45) Sodium Chlorid 0.9% 500 Ml Inj (Ns 500 M (06/30/17 05:45) Ketorolac Inj (Toradol Inj) (06/30/17 05:45) Ondansetron Inj (Zofran Inj) (06/30/17 05:45) Beta Hcg (Quant/Titer) (06/30/17 05:32) Electrocardiogram (06/30/17 ) Ed Discharge Order (06/30/17 10:42) Labs Laboratory Tests Test 06/30/17 05:35 White Blood Count 5.4 TH/MM3 Red Blood Count 3.77 MIL/MM3 Hemoglobin 11.6 GM/DL Hematocrit 33.6 % Mean Corpuscular Volume 89.3 FL Mean Corpuscular Hemoglobin 30.9 PG Mean Corpuscular Hemoglobin Concent 34.6 % Red Cell Distribution Width 12.3 % Platelet Count 162 TH/MM3 Mean Platelet Volume 9.1 FL Neutrophils (%) (Auto) 53.0 % Lymphocytes (%) (Auto) 34.1 % Monocytes (%) (Auto) 9.5 % Eosinophils (%) (Auto) 3.0 % Basophils (%) (Auto) 0.4 % Neutrophils # (Auto) 2.9 TH/MM3 Lymphocytes # (Auto) 1.8 TH/MM3 Monocytes # (Auto) 0.5 TH/MM3 Eosinophils # (Auto) 0.2 TH/MM3 Basophils # (Auto) 0.0 TH/MM3 CBC Comment DIFF FINAL Differential Comment Blood Urea Nitrogen 10 MG/DL Creatinine 0.54 MG/DL Random Glucose 103 MG/DL Total Protein 6.3 GM/DL Albumin 3.4 GM/DL Calcium Level 7.7 MG/DL Alkaline Phosphatase 99 U/L Aspartate Amino Transf (AST/SGOT) 27 U/L Alanine Aminotransferase (ALT/SGPT) 25 U/L Total Bilirubin 0.1 MG/DL Sodium Level 146 MEQ/L Potassium Level 3.5 MEQ/L Chloride Level 115 MEQ/L Carbon Dioxide Level 21.2 MEQ/L Anion Gap 10 MEQ/L Estimat Glomerular Filtration Rate 139 ML/MIN Troponin I LESS THAN 0.02 NG/ML Human Chorionic Gonadotropin, Quant LESS THAN 1 MIU/ML MDM Supervised Visit with MIRI: No Narrative Course Patient care assumed from Dr. Reid 700, this is a 26-year-old female who was celebrating anniversary with her last night had too much to drink and passed out, she is complaining of chest pain, her who is a marine did chest compressions on her after she passed out for a moment or 2, EKG negative 2, troponin negative on arrival, patient no sobering up like to take her home, he is clinically sober. I think at this time this is a reasonable course of action discussed with him return to ED criteria, pain control at home. Discussed return to ED criteria. Diagnosis Primary Impression: Chest wall pain Med/Other Pt SpecificInfo: Prescription(s) given Scripts Tramadol (Ultram) 50 Mg Tab 50 MG PO Q6H Y for PAIN, #10 TAB 0 Refills Prov: Nick Stafford MD 06/30/17 Disposition: 01 DISCHARGE HOME Condition: Stable Nick Stafford MD Jun 30, 2017 10:42
[2017-06-30 10:56] VITALS: BP 135/72
--- NOTE | 2017-06-30 18:12 | EKG ---
Date Performed: 06/30/2017 Time Performed: 10:35:35 PTAGE: 26 years EKG: Sinus rhythm WITH SINUS ARRHYTHMIA LOW QRS VOLTAGE IN PRECORDIAL LEADS BORDERLINE ECG PREVIOUS TRACING : 06/30/2017 05.34 Compared to prior tracing no significant change DOCTOR: Sam Ramos Interpretating Date/Time 06/30/2017 18:11:42
--- NOTE | 2017-06-30 18:29 | EKG ---
Date Performed: 06/30/2017 Time Performed: 05:34:15 PTAGE: 26 years EKG: Sinus rhythm WITH SINUS ARRHYTHMIA LOW QRS VOLTAGE IN PRECORDIAL LEADS BORDERLINE ECG PREVIOUS TRACING : 01/17/2017 14.06 Compared to prior tracing no significant change DOCTOR: Sam Ramos Interpretating Date/Time 06/30/2017 18:27:56
== END 2017-06-30 11:00 | disposition home or self-care (01) ==
LOC: NEPE 05:19
DX: R07.89 Other chest pain (principal); I49.8 Other specified cardiac arrhythmias
CPT/HCPCS: 71010; 80053; 84484; 84702; 85025; 93005; 96361; 96374; 96375; 99285; J1885; J2405; J7040

== ENCOUNTER 2017-11-26 15:29 | Inpatient (IN) | payer OTHER, MEDICAID ==
[2017-11-26] VITALS (8 sets, daily range): BP systolic 100–152; BP diastolic 50–91; PULSE 111–118; RESP 10–30; TEMP 97.9–99.3; O2SAT 95–100
[~2017-11-26] VITALS: Ht 149.9 cm; Wt 64.5 kg
[~2017-11-26 15:29] MED LIST changes: +CEPH500C PO; -JOLI0.35 PO; +XOLA150S SQ
[2017-11-26] MEDS ORDERED: methylPREDNISolone SOD SUCC 125 MG/2 ML VIAL IV PUSH ONE (15:45)
[2017-11-26] MEDS: SODIUM CHLORIDE 0.9% FLUSH 10 ML FLUSH IVF PRN (15:50)
--- NOTE | 2017-11-26 15:52 | PD ---
HPI Chief Complaint: Respiratory Distress Time Seen by Provider: 15:41 Travel History International Travel<30 days: No Contact w/Intl Traveler<30days: No Traveled to known affect area: No History of Present Illness HPI 27-year-old female presents with shortness of breath since this morning. She went to her lung specialist who gave her a shot of epinephrine and she came here by private vehicle for further care. She denies any other concurrent complaints other than coughing. She states she feels worse when she moves around. She denies other modifying factors. Quality is wheezing. Severity is progressive. Duration is couple of hours. PFSH Past Medical History Asthma: Yes Anxiety: Yes Diminished Hearing: No Respiratory: Yes (asthma) ?: Not LMP: UNK : 1 Para: 1 Past Surgical History Appendectomy: Yes Section: Yes Cholecystectomy: Yes Gynecologic Surgery: Yes (c section) Social History Alcohol Use: Yes (OCCASIONALLY) Tobacco Use: No (pt denies ) Substance Use: No (pt denies ) Allergies-Medications (Allergen,Severity, Reaction): Coded Allergies: pecan nut (Verified Allergy, Severe, Rash, THROAT SWELLS, 11/26/17) Reported Meds & Prescriptions Reported Meds & Active Scripts Active Reported Xolair Inj (Omalizumab) 150 Mg Vial 150 Mg SQ Q28D Breo Ellipta Inh (Fluticasone/Vilanterol) 200-25 Mcg/Act Inh 1 Puff INH DAILY Use daily at the same time. Proair Hfa 8.5 GM Inh (Albuterol Sulfate) 90 Mcg/Act Aer 2 Puff INH Q4-6H PRN 108 mcg/actuation Review of Systems Except as stated in HPI: all other systems reviewed are Neg Physical Exam Narrative GENERAL: 27-year-old female who appears short of breath SKIN: Focused skin assessment warm/dry. HEAD: Atraumatic. Normocephalic. EYES: Pupils equal and round. No scleral icterus. No injection or drainage. ENT: No nasal bleeding or discharge. Mucous membranes pink and moist. NECK: Trachea midline. CARDIOVASCULAR: Regular rate and rhythm. RESPIRATORY: No accessory muscle use. Expiratory and inspiratory wheezing bilaterally GASTROINTESTINAL: Abdomen soft, non-tender, nondistended. MUSCULOSKELETAL: No obvious deformities. No clubbing. No cyanosis. No edema. NEUROLOGICAL: Awake and alert. No obvious cranial nerve deficits. Motor grossly within normal limits. Normal speech. Data Data Last Documented VS Vital Signs Date Time Temp Pulse Resp B/P (MAP) Pulse Ox O2 Delivery O2 Flow Rate FiO2 11/26/17 16:30 98.1 111 21 116/75 (89) 99 Simple Mask Orders Orders Complete Blood Count With Diff (11/26/17 15:44) Basic Metabolic Panel (Bmp) (11/26/17 15:44) Magnesium (Mg) (11/26/17 15:44) Influenzae A/B Antigen (11/26/17 15:44) Iv Access Insert/Monitor (11/26/17 15:44) Ecg Monitoring (11/26/17 15:44) Oximetry (11/26/17 15:44) Chest, Single Ap (11/26/17 15:44) Sodium Chloride 0.9% Flush (Ns Flush) (11/26/17 15:45) Methylprednisolone So Succ Inj (Solumedr (11/26/17 15:45) Albuterol-Ipratropium Neb (Duoneb Neb) (11/26/17 15:45) Lactic Acid (11/26/17 15:44) Sodium Chlor 0.9% 1000 Ml Inj (Ns 1000 M (11/26/17 16:45) Sodium Chlor 0.9% 1000 Ml Inj (Ns 1000 M (11/26/17 16:45) Urinalysis - C+S If Indicated (11/26/17 16:36) Blood Culture (11/26/17 16:36) Ceftriaxone Inj (Rocephin Inj) (11/26/17 16:36) Azithromycin Inj (Zithromax Inj) (11/26/17 16:36) Admit Order (Ed Use Only) (11/26/17 17:11) Labs Laboratory Tests Test 11/26/17 15:50 White Blood Count 9.0 TH/MM3 Red Blood Count 4.57 MIL/MM3 Hemoglobin 13.7 GM/DL Hematocrit 40.4 % Mean Corpuscular Volume 88.6 FL Mean Corpuscular Hemoglobin 30.0 PG Mean Corpuscular Hemoglobin Concent 33.8 % Red Cell Distribution Width 12.9 % Platelet Count 229 TH/MM3 Mean Platelet Volume 9.0 FL Neutrophils (%) (Auto) 61.1 % Lymphocytes (%) (Auto) 27.4 % Monocytes (%) (Auto) 10.7 % Eosinophils (%) (Auto) 0.4 % Basophils (%) (Auto) 0.4 % Neutrophils # (Auto) 5.5 TH/MM3 Lymphocytes # (Auto) 2.5 TH/MM3 Monocytes # (Auto) 1.0 TH/MM3 Eosinophils # (Auto) 0.0 TH/MM3 Basophils # (Auto) 0.0 TH/MM3 CBC Comment DIFF FINAL Differential Comment Blood Urea Nitrogen 8 MG/DL Creatinine 0.77 MG/DL Random Glucose 114 MG/DL Calcium Level 8.9 MG/DL Magnesium Level 1.9 MG/DL Sodium Level 142 MEQ/L Potassium Level 3.8 MEQ/L Chloride Level 106 MEQ/L Carbon Dioxide Level 24.0 MEQ/L Anion Gap 12 MEQ/L Estimat Glomerular Filtration Rate 91 ML/MIN Lactic Acid Level 4.8 mmol/L [facility] Medical Decision Making Medical Screen Exam Complete: Yes Emergency Medical Condition: Yes Medical Record Reviewed: Yes (Past history confirmed) Interpretation(s) CBC & BMP Diagram 11/26/17 15:50 Calcium Level 8.9, Magnesium Level 1.9 Last 24 hours Impressions Chest X-Ray 11/26/17 1544 Signed Impressions: CONCLUSION: Hypoinflation with no acute cardiopulmonary process. Differential Diagnosis Asthma exacerbation, pneumonia, pneumothorax Narrative Course We will check blood work, chest x-ray and dose with duo nebs and Solu-Medrol and reevaluate Given elevated lactate, will add on blood cultures and dose with antibiotics and fluids although I believe this is related to her asthma exacerbation Physician Communication Physician Communication Discussed with her literature professor who states that he gave her epinephrine IM for her asthma without other medication as she had received a breathing treatment at home and sent her here by car, 91% in office dr garcia agrees to admit Diagnosis Primary Impression: Asthma Qualified Codes: J45.901 - Unspecified asthma with (acute) exacerbation Admitting Information Admitting Physician Requests: Observation Nanda Harrell MD November 26, 2017 15:52
[2017-11-26] MEDS: RESP: ALBUTEROL 2.5 MG/IPRATROPIUM 0.5 MG NEB (SCH) INH (15:53)
[2017-11-26 16:08] LABS: AUTOMATED NEUTROPHIL # 5.5 TH/MM3 (1.8-7.7); BASOPHIL % 0.4 % (0.0-2.0); EOSINOPHIL % 0.4 % (0.0-4.0); HEMATOCRIT 40.4 % (35.0-46.0); HEMOGLOBIN 13.7 GM/DL (11.6-15.3); LYMPH % 27.4 % (9.0-44.0); LYMPHOCYTE # 2.5 TH/MM3 (1.0-4.8); MEAN CELL VOLUME 88.6 FL (80.0-100.0); MEAN CORPUSCULAR HGB CONC 33.8 % (32.0-36.0); MONO % 10.7 % (0.0-8.0); NEUT % 61.1 % (16.0-70.0); PLATELET COUNT 229 TH/MM3 (150-450); RED BLOOD COUNT 4.57 MIL/MM3 (4.00-5.30); RED CELL DISTRIBUTION WIDTH 12.9 % (11.6-17.2)
--- NOTE | 2017-11-26 16:25 | RADRPT ---
EXAM DATE: 11/26/2017 4:22 PM EDT AGE/SEX: 27 years / Female INDICATIONS: Short of breath. CLINICAL DATA: This is the patient's initial encounter. Patient reports that signs and symptoms have been present for 1 day and indicates a pain score of 0/10. MEDICAL/SURGICAL HISTORY: None. None. [place] [facility] [place]. . FINDINGS: A single AP view of the chest demonstrates the lungs to be symmetrically hypoinflated with out evidence of mass, infiltrate or effusion. The cardiomediastinal contours are unremarkable. Osse ous structures are intact. Surgical clips in the right upper abdominal quadrant are characteristic o f prior cholecystectomy. CONCLUSION: Hypoinflation with no acute cardiopulmonary process. Electronically signed by: Hayder Agosto MD 11/26/2017 4:23 PM EDT
[2017-11-26 16:34] LABS: CALCIUM 8.9 MG/DL (8.5-10.1); CREATININE 0.77 MG/DL (0.50-1.00); MAGNESIUM 1.9 MG/DL (1.5-2.5)
[2017-11-26] MEDS ORDERED: AZITHROMYCIN INJ 500 MG in SODIUM CHLOR 0.9% 250 ML INJ 250 ML IV STA (16:36)
[2017-11-26] MEDS ORDERED: cefTRIAXone INJ 2,000 MG in SODIUM CHLORIDE 0.9% INJ 100 ML IV STA (16:36)
[2017-11-26] MEDS ORDERED: SODIUM CHLOR 0.9% 1000 ML INJ 1,000 ML IV ONE ×2 (16:45)
[2017-11-26] MEDS ORDERED: ONDANSETRON HCL 4 MG/2 ML VIAL IVP PRN (17:30)
[2017-11-26] MEDS ORDERED: ACETAMINOPHEN 325 MG TAB PO ONE (17:30)
[2017-11-26 17:58] LABS: BILIRUBIN, URINE NEG (NEG); BLOOD, URINE NEG (NEG); GLUCOSE,URINE NEG (NEG); KETONE, URINE 40 mg/dL (NEG); MUCUS URINE FEW /lpf (OCC); NITRITE,URINE NEG (NEG); SQUAMOUS EPITHELIAL CELL URINE 4 /hpf (0-5); URINE COLOR YELLOW (YELLW/STRAW); URINE LEUKOCYTE ESTERASE NEG (NEG)
[2017-11-26] MEDS ORDERED: HEPARIN SODIUM - SQ 10,000 UNITS/ML VIAL SQ SCH (18:00)
--- NOTE | 2017-11-26 19:47 | HHI.HP ---
[facility] Service [facility] Primary Care Physician Padmini Steel MD Admission Diagnosis asthma exacerbation, lactic acidosis Diagnoses: Chief Complaint: Shortness of breath Travel History International Travel<30 Days: No Contact w/Intl Traveler <30 Da: No Traveled to Known Affected Are: No Sepsis Criteria SIRS Criteria (2 or more): Heart rate over 90, RR > 20 or PaCO2 < 32 Criteria Outcome: Meets SIRS criteria Review of Systems Except as stated in HPI: all other systems reviewed are Neg Past Family Social History Past Medical History Asthma, anxiety Past Surgical History Appendectomy, , cholecystectomy Reported Medications Xolair Inj (Omalizumab) 150 Mg Vial 150 Mg SQ Q28D Breo Ellipta Inh (Fluticasone/Vilanterol) 200-25 Mcg/Act Inh 1 Puff INH DAILY Use daily at the same time. Proair Hfa 8.5 GM Inh (Albuterol Sulfate) 90 Mcg/Act Aer 2 Puff INH Q4-6H PRN 108 mcg/actuation Allergies: Coded Allergies: pecan nut (Verified Allergy, Severe, Rash, THROAT SWELLS, 11/26/17) Social History Drinks alcohol occasionally. Denies using tobacco or illicit drugs. Physical Exam Vital Signs Vital Signs Date Time Temp Pulse Resp B/P (MAP) Pulse Ox O2 Delivery O2 Flow Rate FiO2 11/26/17 18:08 97.9 96 18 109/77 (88) 99 11/26/17 16:30 98.1 111 21 116/75 (89) 99 Simple Mask 11/26/17 15:45 22 100 Room Air 11/26/17 15:41 103 22 100 Room Air 11/26/17 15:33 99.2 115 30 152/91 (111) 98 Physical Exam GENERAL: This is a well-nourished, well-developed patient, in no apparent distress. SKIN: No rashes, ecchymoses or lesions. Warm and dry. HEAD: Atraumatic. Normocephalic. No temporal or scalp tenderness. EYES: Pupils equal round and reactive. No injection or drainage. ENT: Nose without bleeding, purulent drainage or septal hematoma. Airway patent. NECK: Trachea midline. No lymphadenopathy. Supple, nontender, no meningeal signs. CARDIOVASCULAR: Regular rate and rhythm without murmurs, gallops, or rubs. No JVD. RESPIRATORY: Clear to auscultation. Breath sounds equal bilaterally. No wheezes , rales, or rhonchi. GASTROINTESTINAL: Abdomen soft, non-tender, nondistended. No guarding. MUSCULOSKELETAL: Extremities without clubbing, cyanosis, or edema. NEUROLOGICAL: Awake and alert. Cranial nerves II through XII intact. No focal neurological deficits. Normal speech. Laboratory Laboratory Tests Test 11/26/17 15:50 11/26/17 17:10 White Blood Count 9.0 Red Blood Count 4.57 Hemoglobin 13.7 Hematocrit 40.4 Mean Corpuscular Volume 88.6 Mean Corpuscular Hemoglobin 30.0 Mean Corpuscular Hemoglobin Concent 33.8 Red Cell Distribution Width 12.9 Platelet Count 229 Mean Platelet Volume 9.0 Neutrophils (%) (Auto) 61.1 Lymphocytes (%) (Auto) 27.4 Monocytes (%) (Auto) 10.7 Eosinophils (%) (Auto) 0.4 Basophils (%) (Auto) 0.4 Neutrophils # (Auto) 5.5 Lymphocytes # (Auto) 2.5 Monocytes # (Auto) 1.0 Eosinophils # (Auto) 0.0 Basophils # (Auto) 0.0 CBC Comment DIFF FINAL Differential Comment Blood Urea Nitrogen 8 Creatinine 0.77 Random Glucose 114 Calcium Level 8.9 Magnesium Level 1.9 Sodium Level 142 Potassium Level 3.8 Chloride Level 106 Carbon Dioxide Level 24.0 Anion Gap 12 Estimat Glomerular Filtration Rate 91 Lactic Acid Level 4.8 Urine Color YELLOW Urine Turbidity CLEAR Urine pH 6.0 Urine Specific [place] 1.034 Urine Protein TRACE Urine Glucose (UA) NEG Urine Ketones 40 Urine Occult Blood NEG Urine Nitrite NEG Urine Bilirubin NEG Urine Urobilinogen LESS THAN 2.0 Urine Leukocyte Esterase NEG Urine RBC 1 Urine WBC LESS THAN 1 Urine Squamous Epithelial Cells 4 Urine Mucus FEW Microscopic Urinalysis Comment CATH-CULT NOT IND Date/Time Source Procedure Growth Status 11/26/17 17:00 Blood Peripheral Aerobic Blood Culture Pending Received 11/26/17 17:00 Blood Peripheral Anaerobic Blood Culture Pending Received 11/26/17 15:50 Nasal Aspirate Influenza Types A,B Antigen (EMILY) - Final NEGATIVE FOR FLU A AND B ANTIGEN.... Complete Result Diagram: 11/26/17 1550 11/26/17 1550 Imaging Last Impressions Chest X-Ray 11/26/17 1544 Signed Impressions: CONCLUSION: Hypoinflation with no acute cardiopulmonary process. Caprini VTE Risk Assessment Caprini Risk Assessment Model Point Value = 1 Point Value = 2 Point Value = 3 Point Value = 5 Age 41-60 Minor surgery BMI > 25 kg/m2 Swollen legs Varicose veins or History of unexplained or recurrent spontaneous Oral contraceptives or hormone replacement Sepsis (< 1 month) Serious lung disease, including pneumonia (< 1 month) Abnormal pulmonary function Acute myocardial infarction Congestive heart failure (< 1 month) History of inflammatory bowel disease Medical patient at bed rest Age 61-74 Arthroscopic surgery Major open surgery (> 45 min) Laparoscopic surgery (> 45 min) Malignancy Confined to bed (> 72 hours) Immobilizing plaster cast Central venous access Age >= 75 History of VTE Family history of VTE Factor V Leiden Prothrombin [id number] Lupus anticoagulant Anticardiolipin antibodies Elevated serum homocysteine Heparin-induced thrombocytopenia Other congenital or acquired thrombophilia Stroke (< 1 month) Elective arthroplasty Hip, pelvis, or leg fracture Acute spinal cord injury (< 1 month) Prophylaxis Regimen Total Risk Factor Score Risk Level Prophylaxis Regimen 0-1 Low Early ambulation 2 Moderate Order ONE of the following: *Sequential Compression Device (SCD) *Heparin 5000 units SQ BID 3-4 Higher Order ONE of the following medications: *Heparin 5000 units SQ TID *Enoxaparin/Lovenox 40 mg SQ daily (WT < 150 kg, CrCl > 30 mL/min) *Enoxaparin/Lovenox 30 mg SQ daily (WT < 150 kg, CrCl > 10-29 mL/min) *Enoxaparin/Lovenox 30 mg SQ BID (WT < 150 kg, CrCl > 30 mL/min) AND/OR *Sequential Compression Device (SCD) 5 or more Highest Order ONE of the following medications: *Heparin 5000 units SQ TID (Preferred with Epidurals) *Enoxaparin/Lovenox 40 mg SQ daily (WT < 150 kg, CrCl > 30 mL/min) *Enoxaparin/Lovenox 30 mg SQ daily (WT < 150 kg, CrCl > 10-29 mL/min) *Enoxaparin/Lovenox 30 mg SQ BID (WT < 150 kg, CrCl > 30 mL/min) AND *Sequential Compression Device (SCD) Lis Lees DO November 26, 2017 7:47 pm
[2017-11-26] MEDS: RESP: ALBUTEROL 2.5 MG/IPRATROPIUM 0.5 MG NEB (PRN) NEB ×3 (20:17→22:36)
[2017-11-26] MEDS ORDERED: LORazepam 0.5 MG TAB PO ONE (21:00)
[2017-11-26] MEDS: MAGNESIUM SULFATE 1 GM PREMIX 100 ML IV SCH ×2 (21:32→23:21)
--- NOTE | 2017-11-26 21:45 | HHI.HP ---
HPI [facility] Primary Care Physician Padmini Steel MD Admission Diagnosis asthma exacerbation, lactic acidosis Diagnoses: Chief Complaint: Shortness of breath Travel History International Travel<30 Days: No Contact w/Intl Traveler <30 Da: No Traveled to Known Affected Are: No Sepsis Criteria SIRS Criteria (2 or more): Heart rate over 90, RR > 20 or PaCO2 < 32 Septic Shock Criteria: Lactic acid >=4 Criteria Outcome: Meets SIRS criteria History of Present Illness Ms. Marks is a pleasant 27-year-old female with a history of asthma who presented to the emergency department on 11/26/2017 due to shortness of breath, asthma flareup. Her symptoms started on 11/24/2017 which got better the following day. However, today her symptoms worsened and she subsequently went to her asthma 4 h youth development specialist who provided 1 dose of epinephrine and advised patient to come to the emergency department. Patient denies any chest pain, fever or chills. Denies any changes in bowel or bladder habits. Her 1-year-old daughter has had cold symptoms recently. On arrival temperature 99.2F pulse 115, respiration 30, blood pressure 152/91, pulse oximetry 98%. Patient is requiring supplemental oxygen. She does report some anxiety as well. Review of Systems Except as stated in HPI: all other systems reviewed are Neg Past Family Social History Past Medical History Asthma, anxiety Past Surgical History Appendectomy, , cholecystectomy Reported Medications Xolair Inj (Omalizumab) 150 Mg Vial 150 Mg SQ Q28D Breo Ellipta Inh (Fluticasone/Vilanterol) 200-25 Mcg/Act Inh 1 Puff INH DAILY Use daily at the same time. Proair Hfa 8.5 GM Inh (Albuterol Sulfate) 90 Mcg/Act Aer 2 Puff INH Q4-6H PRN 108 mcg/actuation Allergies: Coded Allergies: pecan nut (Verified Allergy, Severe, Rash, THROAT SWELLS, 11/26/17) Family History Mother with asthma. Social History Drinks alcohol occasionally. Denies using tobacco or illicit drugs. Physical Exam Vital Signs Vital Signs Date Time Temp Pulse Resp B/P (MAP) Pulse Ox O2 Delivery O2 Flow Rate FiO2 11/26/17 20:29 99.3 118 16 100/50 (67) 100 11/26/17 18:08 97.9 96 18 109/77 (88) 99 11/26/17 16:30 98.1 111 21 116/75 (89) 99 Simple Mask 11/26/17 15:45 22 100 Room Air 11/26/17 15:41 103 22 100 Room Air 11/26/17 15:33 99.2 115 30 152/91 (111) 98 Physical Exam GENERAL: This is a well-nourished, well-developed patient, in no apparent distress. SKIN: No rashes, ecchymoses or lesions. Cool and dry. HEAD: Atraumatic. Normocephalic. No temporal or scalp tenderness. EYES: Pupils equal round and reactive. Extraocular motions intact. No scleral icterus. No injection or drainage. ENT: Nose without bleeding, purulent drainage or septal hematoma. Throat without erythema, tonsillar hypertrophy or exudate. Uvula midline. Airway patent. NECK: Trachea midline. No JVD or lymphadenopathy. Supple, nontender, no meningeal signs. CARDIOVASCULAR: Regular rate and rhythm without murmurs, gallops, or rubs. RESPIRATORY: Clear to auscultation. Breath sounds equal bilaterally. No wheezes , rales, or rhonchi. GASTROINTESTINAL: Abdomen soft, non-tender, nondistended. No hepato-splenomegaly , or palpable masses. No guarding. MUSCULOSKELETAL: Extremities without clubbing, cyanosis, or edema. No joint tenderness, effusion, or edema noted. No calf tenderness. Negative Homans sign bilaterally. NEUROLOGICAL: Awake and alert. Cranial nerves II through XII intact. Motor and sensory grossly within normal limits. Five out of 5 muscle strength in all muscle groups. Normal speech. Laboratory Laboratory Tests Test 11/26/17 15:50 11/26/17 17:10 White Blood Count 9.0 Red Blood Count 4.57 Hemoglobin 13.7 Hematocrit 40.4 Mean Corpuscular Volume 88.6 Mean Corpuscular Hemoglobin 30.0 Mean Corpuscular Hemoglobin Concent 33.8 Red Cell Distribution Width 12.9 Platelet Count 229 Mean Platelet Volume 9.0 Neutrophils (%) (Auto) 61.1 Lymphocytes (%) (Auto) 27.4 Monocytes (%) (Auto) 10.7 Eosinophils (%) (Auto) 0.4 Basophils (%) (Auto) 0.4 Neutrophils # (Auto) 5.5 Lymphocytes # (Auto) 2.5 Monocytes # (Auto) 1.0 Eosinophils # (Auto) 0.0 Basophils # (Auto) 0.0 CBC Comment DIFF FINAL Differential Comment Blood Urea Nitrogen 8 Creatinine 0.77 Random Glucose 114 Calcium Level 8.9 Magnesium Level 1.9 Sodium Level 142 Potassium Level 3.8 Chloride Level 106 Carbon Dioxide Level 24.0 Anion Gap 12 Estimat Glomerular Filtration Rate 91 Lactic Acid Level 4.8 Urine Color YELLOW Urine Turbidity CLEAR Urine pH 6.0 Urine Specific [place] 1.034 Urine Protein TRACE Urine Glucose (UA) NEG Urine Ketones 40 Urine Occult Blood NEG Urine Nitrite NEG Urine Bilirubin NEG Urine Urobilinogen LESS THAN 2.0 Urine Leukocyte Esterase NEG Urine RBC 1 Urine WBC LESS THAN 1 Urine Squamous Epithelial Cells 4 Urine Mucus FEW Microscopic Urinalysis Comment CATH-CULT NOT IND Date/Time Source Procedure Growth Status 11/26/17 17:00 Blood Peripheral Aerobic Blood Culture Pending Received 11/26/17 17:00 Blood Peripheral Anaerobic Blood Culture Pending Received 11/26/17 15:50 Nasal Aspirate Influenza Types A,B Antigen (EMILY) - Final NEGATIVE FOR FLU A AND B ANTIGEN.... Complete Result Diagram: 11/26/17 1550 11/26/17 1550 Imaging Last Impressions Chest X-Ray 11/26/17 1544 Signed Impressions: CONCLUSION: Hypoinflation with no acute cardiopulmonary process. Caprini VTE Risk Assessment Caprini VTE Risk Assessment: Mod/High Risk (score >= 2) Caprini Risk Assessment Model Point Value = 1 Point Value = 2 Point Value = 3 Point Value = 5 Age 41-60 Minor surgery BMI > 25 kg/m2 Swollen legs Varicose veins or History of unexplained or recurrent spontaneous Oral contraceptives or hormone replacement Sepsis (< 1 month) Serious lung disease, including pneumonia (< 1 month) Abnormal pulmonary function Acute myocardial infarction Congestive heart failure (< 1 month) History of inflammatory bowel disease Medical patient at bed rest Age 61-74 Arthroscopic surgery Major open surgery (> 45 min) Laparoscopic surgery (> 45 min) Malignancy Confined to bed (> 72 hours) Immobilizing plaster cast Central venous access Age >= 75 History of VTE Family history of VTE Factor V Leiden Prothrombin [id number] Lupus anticoagulant Anticardiolipin antibodies Elevated serum homocysteine Heparin-induced thrombocytopenia Other congenital or acquired thrombophilia Stroke (< 1 month) Elective arthroplasty Hip, pelvis, or leg fracture Acute spinal cord injury (< 1 month) Prophylaxis Regimen Total Risk Factor Score Risk Level Prophylaxis Regimen 0-1 Low Early ambulation 2 Moderate Order ONE of the following: *Sequential Compression Device (SCD) *Heparin 5000 units SQ BID 3-4 Higher Order ONE of the following medications: *Heparin 5000 units SQ TID *Enoxaparin/Lovenox 40 mg SQ daily (WT < 150 kg, CrCl > 30 mL/min) *Enoxaparin/Lovenox 30 mg SQ daily (WT < 150 kg, CrCl > 10-29 mL/min) *Enoxaparin/Lovenox 30 mg SQ BID (WT < 150 kg, CrCl > 30 mL/min) AND/OR *Sequential Compression Device (SCD) 5 or more Highest Order ONE of the following medications: *Heparin 5000 units SQ TID (Preferred with Epidurals) *Enoxaparin/Lovenox 40 mg SQ daily (WT < 150 kg, CrCl > 30 mL/min) *Enoxaparin/Lovenox 30 mg SQ daily (WT < 150 kg, CrCl > 10-29 mL/min) *Enoxaparin/Lovenox 30 mg SQ BID (WT < 150 kg, CrCl > 30 mL/min) AND *Sequential Compression Device (SCD) Assessment and Plan Problem List: (1) Acute asthma exacerbation ICD Code: J45.901 - Unspecified asthma with (acute) exacerbation Assessment and Plan Ms. Marks is a pleasant 27-year-old female with a history of asthma who presented to the hospital due to shortness of breath that started on 11/24/2017. She went to her asthma/4 h youth development specialist who administered 1 dose of epinephrine and subsequently advised to come to the emergency department. Patient was initially admitted under observation. However, due to concern over her respiratory status closely transfer patient to ICU. Acute exacerbation of asthma -Continue supplemental oxygen to maintain O2 saturation around 92%. -Start Solu-Medrol 40 mg every 6 hours -Continue albuterol inhaler, DuoNeb as needed -Magnesium sulfate IV 2 g. Obtain ABG -Consult head of english. -Consider CT PE study once her respiratory status is stable. Anxiety -we will give her a small dose of Ativan 0.5 mg p.o. once. Full code. Heparin SQ. Discussed with Dr. Cummings. Physician Certification 2 Midnight Certification Type: Admission for Inpatient Services Order for Inpatient Services The services are ordered in accordance with Medicare regulations or non- Medicare payer requirements, as applicable. In the case of services not specified as inpatient-only, they are appropriately provided as inpatient services in accordance with the 2-midnight benchmark. Estimated LOS (days): 2 days is the estimated time the patient will need to remain in the hospital, assuming treatment plan goals are met and no additional complications. Post-Hospital Plan: Home Lis Lees DO November 26, 2017 9:45 pm
[2017-11-26] MEDS ORDERED: CHLORHEXIDINE GLUCONATE 2 % 1 PACK (2 CLOTHS)(extra cloths) TOPICAL PRN (22:15)
[2017-11-26] MEDS: RESP: ALBUTEROL 2.5 MG/IPRATROPIUM 0.5 MG NEB (SCH) NEB ×3 (22:25→22:54)
--- NOTE | 2017-11-26 22:25 | PD.CONS ---
HPI Service Critical Care Medicine Consult Requested By Primary Care Physician Padmini Steel MD History of Present Illness 27-year-old female presents with shortness of breath since this morning. She went to her lung specialist who gave her a shot of epinephrine and she came here by private vehicle for further care. She denies any other concurrent complaints other than coughing. She was initially admitted to hospitalist service on medical floor however her symptoms get worsen with moderate to severe respiratory distress requiring transfer to intensive care unit. Review of Systems ROS Unable to obtain due to respiratory distress Past Family Social History Allergies: Coded Allergies: pecan nut (Verified Allergy, Severe, Rash, THROAT SWELLS, 11/26/17) Past Medical History Asthma, Anxiety Past Surgical History Appendectomy, , Cholecystectomy Reported Medications Reported Meds & Active Scripts Active Reported Xolair Inj (Omalizumab) 150 Mg Vial 150 Mg SQ Q28D Breo Ellipta Inh (Fluticasone/Vilanterol) 200-25 Mcg/Act Inh 1 Puff INH DAILY Use daily at the same time. Proair Hfa 8.5 GM Inh (Albuterol Sulfate) 90 Mcg/Act Aer 2 Puff INH Q4-6H PRN 108 mcg/actuation Active Ordered Medications Current Medications Medications (Trade) Dose Ordered Sig/Dilma Route PRN Reason Start Time Stop Time Status Last Admin Dose Admin Sodium Chloride (NS Flush) 2 ml UNSCH PRN IVF FLUSH AFTER USING IV ACCESS 11/26/17 15:45 11/26/17 15:50 Ondansetron HCl (Zofran Inj) 4 mg Q6H PRN IVP NAUSEA OR VOMITING 11/26/17 17:30 Heparin Sodium (Porcine) (Heparin Inj) 5,000 units Q8H SQ 11/26/17 18:00 11/26/17 17:48 Prednisone (Deltasone) 40 mg DAILY PO 11/27/17 09:00 12/02/17 08:59 Albuterol Sulfate (Proair Hfa Inh) 2 puff Q6H PRN INH ASTHMA 11/26/17 20:00 Albuterol/ Ipratropium (Duoneb Neb) 1 ampule Q6HR NEB PRN NEB dyspnea 11/26/17 20:00 11/26/17 20:17 Magnesium Sulfate/ Dextrose 100 ml @ 100 mls/hr Q1H IV 11/26/17 21:00 11/26/17 22:59 11/26/17 21:32 Miscellaneous Information ([facility] [place] Nursing Information) Patient in critical care unit? Ass... [id number] .XX 11/26/17 22:15 Chlorhexidine Gluconate (Chlorhexidine 2% Cloth) 3 pack DAILY@04 TOPICAL 11/27/17 04:00 12/01/17 04:01 Chlorhexidine Gluconate (Chlorhexidine 2% Cloth) 3 pack UNSCH PRN TOPICAL HYGIENIC CARE 11/26/17 22:15 12/01/17 22:04 Methylprednisolone Sodium Succinate (SoluMEDROL INJ) 40 mg Q6H IV PUSH 11/26/17 23:00 Albuterol/ Ipratropium (Duoneb Neb) 1 ampule Q2HR NEB NEB 11/27/17 00:00 UNV Albuterol/ Ipratropium (Duoneb Neb) 1 ampule Q2HR NEB NEB 11/27/17 00:00 UNV Albuterol/ Ipratropium (Duoneb Neb) 1 ampule Q15M NEB 11/26/17 22:15 11/26/17 22:46 UNV Family History Mother with asthma. Social History Drinks alcohol occasionally. Denies using tobacco or illicit drugs. Physical Exam Vital Signs Vital Signs Date Time Temp Pulse Resp B/P (MAP) Pulse Ox O2 Delivery O2 Flow Rate FiO2 11/26/17 22:00 98.0 115 10 118/74 (89) 100 11/26/17 20:29 99.3 118 16 100/50 (67) 100 11/26/17 20:20 98 Nasal Cannula 2.00 11/26/17 18:08 97.9 96 18 109/77 (88) 99 11/26/17 16:30 98.1 111 21 116/75 (89) 99 Simple Mask 11/26/17 15:45 22 100 Room Air 11/26/17 15:41 103 22 100 Room Air 11/26/17 15:33 99.2 115 30 152/91 (111) 98 Physical Exam GENERAL: 27-year-old female in moderate respiratory distress SKIN: Focused skin assessment warm/dry. HEAD: Atraumatic. Normocephalic. EYES: Pupils equal and round. No scleral icterus. No injection or drainage. ENT: No nasal bleeding or discharge. Mucous membranes pink and moist. NECK: Trachea midline. CARDIOVASCULAR: Regular rate and rhythm. RESPIRATORY: No accessory muscle use. Expiratory and inspiratory wheezing bilaterally GASTROINTESTINAL: Abdomen soft, non-tender, nondistended. MUSCULOSKELETAL: No obvious deformities. No clubbing. No cyanosis. No edema. NEUROLOGICAL: Awake and alert. No obvious cranial nerve deficits. Motor grossly within normal limits. Normal speech in short sentences limited by respiratory distress. Laboratory Laboratory Tests Test 11/26/17 15:50 11/26/17 17:10 11/26/17 21:15 White Blood Count 9.0 Red Blood Count 4.57 Hemoglobin 13.7 Hematocrit 40.4 Mean Corpuscular Volume 88.6 Mean Corpuscular Hemoglobin 30.0 Mean Corpuscular Hemoglobin Concent 33.8 Red Cell Distribution Width 12.9 Platelet Count 229 Mean Platelet Volume 9.0 Neutrophils (%) (Auto) 61.1 Lymphocytes (%) (Auto) 27.4 Monocytes (%) (Auto) 10.7 Eosinophils (%) (Auto) 0.4 Basophils (%) (Auto) 0.4 Neutrophils # (Auto) 5.5 Lymphocytes # (Auto) 2.5 Monocytes # (Auto) 1.0 Eosinophils # (Auto) 0.0 Basophils # (Auto) 0.0 CBC Comment DIFF FINAL Differential Comment Blood Urea Nitrogen 8 Creatinine 0.77 Random Glucose 114 Calcium Level 8.9 Magnesium Level 1.9 Sodium Level 142 Potassium Level 3.8 Chloride Level 106 Carbon Dioxide Level 24.0 Anion Gap 12 Estimat Glomerular Filtration Rate 91 Lactic Acid Level 4.8 Urine Color YELLOW Urine Turbidity CLEAR Urine pH 6.0 Urine Specific [place] 1.034 Urine Protein TRACE Urine Glucose (UA) NEG Urine Ketones 40 Urine Occult Blood NEG Urine Nitrite NEG Urine Bilirubin NEG Urine Urobilinogen LESS THAN 2.0 Urine Leukocyte Esterase NEG Urine RBC 1 Urine WBC LESS THAN 1 Urine Squamous Epithelial Cells 4 Urine Mucus FEW Microscopic Urinalysis Comment CATH-CULT NOT IND Blood Gas Puncture Site LT RADIAL Blood Gas Patient Temperature 98.6 Blood Gas HCO3 14 Blood Gas Base Excess -8.6 Blood Gas Oxygen Saturation 98 Arterial Blood pH 7.48 Arterial Blood Partial Pressure CO2 20 Arterial Blood Partial Pressure O2 151 Arterial Blood Oxygen Content 16.6 Arterial Blood Carboxyhemoglobin 0.8 Arterial Blood Methemoglobin 0.6 Blood Gas Hemoglobin 11.8 Oxygen Delivery Device NASAL CANNULA Blood Gas Liter Flow 3 Date/Time Source Procedure Growth Status 11/26/17 17:00 Blood Peripheral Aerobic Blood Culture Pending Received 11/26/17 17:00 Blood Peripheral Anaerobic Blood Culture Pending Received 11/26/17 15:50 Nasal Aspirate Influenza Types A,B Antigen (EMILY) - Final NEGATIVE FOR FLU A AND B ANTIGEN.... Complete Result Diagram: 11/26/17 1550 11/26/17 1550 Imaging Last 24 hours Impressions Chest X-Ray 11/26/17 1544 Signed Impressions: CONCLUSION: Hypoinflation with no acute cardiopulmonary process. Assessment and Plan Assessment and Plan Respiratory failure -Asthma exacerbation -DuoNeb's q. 20 minutes 3 doses -IV steroid -O2 supplement -Continue DuoNeb scheduled and as needed -Pulmonary consultation Anxiety -Ativan as needed DVT GI prophylaxis -Wes's and SCDs -Lovenox -Pepcid Critical Care: The total critical care time was 35 minutes. Time to perform other separately billable procedures was not included in the critical care time. Mihai Cummings MD November 26, 2017 10:25 pm
[2017-11-26] MEDS ORDERED: RESP: ALBUTEROL 2.5 MG/IPRATROPIUM 0.5 MG NEB (PRN) NEB (22:30)
[2017-11-26] MEDS: methylPREDNISolone SOD SUCC 40 MG/1 ML VIAL IV PUSH SCH (22:44)
[2017-11-26] MEDS ORDERED: LORazepam 2 MG/ML VIAL IV PUSH PRN (22:45)
[2017-11-27] VITALS (13 sets, daily range): BP systolic 100–114; BP diastolic 50–66; PULSE 102–129; RESP 16–24; TEMP 98–98.6; O2SAT 97–99
[2017-11-27] MEDS ORDERED: RESP: ALBUTEROL 2.5 MG/IPRATROPIUM 0.5 MG NEB (SCH) NEB
[2017-11-27] MEDS ORDERED: methylPREDNISolone SOD SUCC 40 MG/1 ML VIAL IV PUSH SCH
[2017-11-27] MEDS: RESP: ALBUTEROL 2.5 MG/IPRATROPIUM 0.5 MG NEB (SCH) NEB ×11 (00:38→22:28)
[2017-11-27] MEDS: CHLORHEXIDINE GLUCONATE 2 % 1 PACK (2 CLOTHS)(taper/protocol) TOPICAL SCH (03:27)
[2017-11-27] MEDS: methylPREDNISolone SOD SUCC 40 MG/1 ML VIAL IV PUSH SCH ×4 (05:11→22:16)
[2017-11-27 06:38] LABS: HEMATOCRIT 34.7 % (35.0-46.0); HEMOGLOBIN 11.8 GM/DL (11.6-15.3); LYMPH % 7.8 % (9.0-44.0); LYMPHOCYTE # 0.5 TH/MM3 (1.0-4.8); MEAN CELL VOLUME 89.7 FL (80.0-100.0); MEAN CORPUSCULAR HEMOGLOBIN 30.6 PG (27.0-34.0); MEAN CORPUSCULAR HGB CONC 34.1 % (32.0-36.0); MEAN PLATELET VOLUME 9.4 FL (7.0-11.0); MONO % 2.7 % (0.0-8.0); MONOCYTE # 0.2 TH/MM3 (0-0.9); NEUT % 89.5 % (16.0-70.0); PLATELET COUNT 165 TH/MM3 (150-450); RED BLOOD COUNT 3.87 MIL/MM3 (4.00-5.30); RED CELL DISTRIBUTION WIDTH 12.7 % (11.6-17.2); WHITE BLOOD COUNT 6.7 TH/MM3 (4.0-11.0)
[2017-11-27 07:09] LABS: BICARBONATE 21.1 MEQ/L (21.0-32.0); CALCIUM 8.3 MG/DL (8.5-10.1); CREATININE 0.76 MG/DL (0.50-1.00)
[2017-11-27] MEDS: predniSONE 20 MG TAB PO SCH (08:41)
[2017-11-27] MEDS: ENOXAPARIN SODIUM 40 MG/0.4 ML SYRINGE SQ SCH (08:41)
[2017-11-27] MEDS: FAMOTIDINE 20 MG/2 ML VIAL IV PUSH SCH ×2 (08:42→20:46)
--- NOTE | 2017-11-27 11:56 | HHI.CCPN ---
Subjective Remarks/Hospital Course 11/26: 27-year-old female presents with shortness of breath since this morning. She went to her lung specialist who gave her a shot of epinephrine and she came here by private vehicle for further care. She denies any other concurrent complaints other than coughing. She was initially admitted to hospitalist service on medical floor however her symptoms get worsen with moderate to severe respiratory distress requiring transfer to intensive care unit. 11/27: Breathing seems to be getting better. Still short of breath. On nasal cannula. Objective Vital Signs Date Time Temp Pulse Resp B/P (MAP) Pulse Ox O2 Delivery O2 Flow Rate FiO2 11/27/17 10:00 115 11/27/17 09:00 99 Nasal Cannula 2.00 11/27/17 08:00 98.3 16 113/61 (78) Intake and Output 11/27/17 11/27/17 11/28/17 08:00 16:00 00:00 Intake Total 250 ml Output Total 1875 ml Balance -1625 ml Result Diagram: 11/27/17 0515 11/27/17 0515 Other Results Microbiology Date/Time Source Procedure Growth Status 11/26/17 15:50 Nasal Aspirate Influenza Types A,B Antigen (EMILY) - Final NEGATIVE FOR FLU A AND B ANTIGEN.... Complete Laboratory Tests Test 11/26/17 21:15 Blood Gas Puncture Site LT RADIAL Blood Gas Patient Temperature 98.6 Blood Gas HCO3 14 mmol/L (22-26) Blood Gas Base Excess -8.6 mmol/L (-2-2) Blood Gas Oxygen Saturation 98 % (90-100) Arterial Blood pH 7.48 (7.380-7.420) Arterial Blood Partial Pressure CO2 20 mmHg (38-42) Arterial Blood Partial Pressure O2 151 mmHG (61-120) Arterial Blood Oxygen Content 16.6 Vol % (12.0-20.0) Arterial Blood Carboxyhemoglobin 0.8 % (0-4) Arterial Blood Methemoglobin 0.6 % (0-2) Blood Gas Hemoglobin 11.8 G/DL (12.0-16.0) Oxygen Delivery Device NASAL CANNULA Blood Gas Liter Flow 3 L/M Imaging Last 24 hours Impressions Chest X-Ray 11/26/17 1351 Signed Impressions: CONCLUSION: Hypoinflation with no acute cardiopulmonary process. Objective Remarks GENERAL: 27-year-old female in minimal respiratory distress. SKIN: Focused skin assessment warm/dry. HEAD: Atraumatic. Normocephalic. EYES: Pupils equal and round. No scleral icterus. No injection or drainage. ENT: No nasal bleeding or discharge. Mucous membranes pink and moist. NECK: Trachea midline. CARDIOVASCULAR: Regular rate and rhythm. RESPIRATORY: No accessory muscle use. Good air entry bilaterally, minimal wheezing bilaterally. GASTROINTESTINAL: Abdomen soft, non-tender, nondistended. MUSCULOSKELETAL: No obvious deformities. No clubbing. No cyanosis. No edema. NEUROLOGICAL: Awake and alert. No obvious cranial nerve deficits. Motor grossly within normal limits. Normal speech in short sentences limited by respiratory distress. A/P Assessment and Plan Respiratory failure -Asthma exacerbation -IV steroid -O2 supplement -Continue DuoNeb scheduled and as needed -Pulmonary consultation Anxiety -Ativan as needed DVT GI prophylaxis -Wes's and SCDs -Lovenox -Pepcid Consult and transfer to hospitalist service for further medical management. Critical care will be signing off. Patient to be transferred out of ICU. Sathya Shi MD November 27, 2017 11:56
[2017-11-27] MEDS ORDERED: RESP: ALBUTEROL 2.5 MG/IPRATROPIUM 0.5 MG NEB (PRN) NEB (12:00)
[2017-11-27] MEDS: ACETAMINOPHEN 325 MG TAB PO PRN (14:41)
--- NOTE | 2017-11-27 17:22 | MB ---
cc: Alirio Amezquita MD DATE: 11/27/2017 REASON FOR CONSULTATION: Asthma exacerbation. HISTORY OF PRESENT ILLNESS: Mrs. Marks is a 27-year-old female with a known history of bronchial asthma since childhood presently followed by Dr. Saunders. The patient has frequent exacerbations of her bronchial asthma and has received multiple medications for same. The patient presents to the hospital with increasing shortness of breath and chest wheeze, was given epinephrine injection at the doctor's office without improvement. Her shortness of breath since hospitalization has improved with bronchodilator therapy as well as steroid therapy. The patient has received multiple medications for her bronchial asthma in the past. She is currently on Xolair, has been on Singulair in the past which did not help and was discontinued. She is using Breo as well as inhaled albuterol and consideration was given to thermoplasty in view of the patient's poor control with her current regimen. PAST MEDICAL AND SURGICAL HISTORY: Bronchial asthma, had an appendectomy and a in the past, as well as a cholecystectomy, history of anxiety. ALLERGIES: NUTS. FAMILY HISTORY: Noncontributory. REVIEW OF SYSTEMS: Twelve point review of systems as per HPI and past history, otherwise negative. PHYSICAL EXAMINATION: GENERAL: The patient is alert. VITAL SIGNS: Her temperature is 98.6, pulse 100, respirations 20, blood pressure 104/60, oxygen saturation 99% on 2 liters oxygen nasal cannula. HEENT: Unremarkable. Eyes without icterus. NECK: Without adenopathy, thyroid enlargement. Central trachea. CHEST: A few scattered rhonchi. Good air movement at present. HEART: PMI not appreciated. S1, S2 audible. No murmur, no rub. ABDOMEN: Lax. Bowel sounds are audible. EXTREMITIES: No clubbing, cyanosis or edema. DIAGNOSTIC STUDIES: Chest x-ray with hypoinflation, no acute abnormality seen. White count 6.7; hemoglobin 11; hematocrit 34; platelets at 165,000. Sodium 141, potassium 4.1, BUN 6, creatinine 0.7. Arterial blood gas: pH 7.48, pCO2 of 20, pO2 of 151 on 3 liters oxygen on 11/26/2017. Chest x-ray no acute infiltrates. IMPRESSION: 1. Asthma exacerbation. 2. Anxiety. PLAN: The patient is responding well to her present regimen. However, her asthma overall is not well controlled. She has been using inhaled albuterol frequently despite her multiple medications for asthma control, including Xolair injections monthly. In view of the above, consideration was being given to other modalities of treatment; specifically thermoplasty was considered. At this point, would continue the patient's current medication and post discharge consultation for thermoplasty would be appropriate. Meanwhile, we will obtain baseline pulmonary function. We will give oxygen as needed. Follow her course along with you and depending on progress, proceed further. Alirio Amezquita MD WWW/GEE , 05:03 PM , 05:20 PM
[2017-11-28] VITALS (12 sets, daily range): BP systolic 99–121; BP diastolic 55–70; PULSE 75–112; RESP 16–19; TEMP 97.7–98.6; O2SAT 97–99
[2017-11-28] MEDS: RESP: ALBUTEROL 2.5 MG/IPRATROPIUM 0.5 MG NEB (SCH) NEB ×5 (03:02→22:03)
[2017-11-28] MEDS: CHLORHEXIDINE GLUCONATE 2 % 1 PACK (2 CLOTHS)(taper/protocol) TOPICAL SCH (03:47)
[2017-11-28] MEDS: methylPREDNISolone SOD SUCC 40 MG/1 ML VIAL IV PUSH SCH ×4 (04:26→21:35)
[2017-11-28] MEDS: predniSONE 20 MG TAB PO SCH (08:29)
[2017-11-28] MEDS: FAMOTIDINE 20 MG/2 ML VIAL IV PUSH SCH ×2 (08:29→21:22)
--- NOTE | 2017-11-28 08:29 | HHI.PR ---
Subjective Remarks She is no wheezing at this time however she just received nebulizer. She was wheezing earlier today. Less short of breath. Still requiring oxygen. She does not have oxygen at home. No nausea vomiting no diarrhea or constipation. Still with cough nonproductive. Objective Vitals Vital Signs Date Time Temp Pulse Resp B/P (MAP) Pulse Ox O2 Delivery O2 Flow Rate FiO2 11/28/17 07:49 99 Nasal Cannula 1.00 11/28/17 06:35 Nasal Cannula 2.00 11/28/17 04:35 97.8 108 16 121/60 (80) 97 11/28/17 04:04 88 11/28/17 00:15 99 11/27/17 23:36 98.5 123 16 105/56 (72) 99 11/27/17 20:00 116 11/27/17 19:41 98 Nasal Cannula 1.00 11/27/17 19:28 98.0 102 16 111/66 (81) 99 11/27/17 15:36 98.2 104 16 114/54 (74) 97 11/27/17 12:00 113 11/27/17 12:00 98.6 113 24 104/62 (76) 99 11/27/17 10:00 115 11/27/17 09:00 99 Nasal Cannula 2.00 I/O 11/27/17 11/27/17 11/27/17 11/28/17 11/28/17 11/28/17 07:00 15:00 23:00 07:00 15:00 23:00 Intake Total 350 ml 960 ml Output Total 1875 ml 650 ml Balance -1525 ml 310 ml Intake Oral 150 ml 960 ml IV Total 200 ml Output Urine Total 1875 ml 650 ml # Bowel Movements 0 0 Result Diagram: 11/27/17 0515 11/27/17 0515 Imaging Last Impressions Chest X-Ray 11/26/17 1544 Signed Impressions: CONCLUSION: Hypoinflation with no acute cardiopulmonary process. Objective Remarks GENERAL: 27-year-old female in minimal respiratory distress. CARDIOVASCULAR: Regular rate and rhythm. RESPIRATORY: No accessory muscle use. Good air entry bilaterally, minimal wheezing bilaterally. GASTROINTESTINAL: Abdomen soft, non-tender, nondistended. MUSCULOSKELETAL: No obvious deformities. No clubbing. No cyanosis. No edema. NEUROLOGICAL: Awake and alert. No obvious cranial nerve deficits. Motor grossly within normal limits. Normal speech in short sentences limited by respiratory distress. A/P Problem List: (1) Acute asthma exacerbation ICD Code: J45.901 - Unspecified asthma with (acute) exacerbation Assessment and Plan Respiratory failure requiring oxygen by nasal cannula. -Asthma exacerbation -IV steroid, tapered steroids as tolerated -O2 supplement -Continue DuoNeb scheduled and as needed -Pulmonary consultation, followed by Dr. Hernandez, appreciated recommendations -Tessalon Perles for cough Anxiety -Ativan as needed DVT GI prophylaxis -Wes's and SCDs -Lovenox -Pepcid Discharge plan possible discharge tomorrow if improves and cleared by pulmonology. Needs oxygen walking test if still requires oxygen by tomorrow. Taper oxygen as tolerated Roxanne Vicente MD November 28, 2017 08:28
[2017-11-28] MEDS: ENOXAPARIN SODIUM 40 MG/0.4 ML SYRINGE SQ SCH (08:30)
[2017-11-28] MEDS: SODIUM CHLORIDE 0.9% FLUSH 10 ML FLUSH IVF PRN (08:30)
--- NOTE | 2017-11-28 16:52 | HHI.PR ---
Subjective Remarks ALERT LESS SOB Objective Vital Signs Date Time Temp Pulse Resp B/P (MAP) Pulse Ox O2 Delivery O2 Flow Rate FiO2 11/28/17 13:33 75 11/28/17 12:00 97.7 112 18 113/59 (77) 99 11/28/17 08:15 Nasal Cannula 2.00 11/28/17 08:15 76 11/28/17 08:00 97.8 98 18 115/70 (85) 97 11/28/17 07:49 99 Nasal Cannula 1.00 11/28/17 06:35 Nasal Cannula 2.00 11/28/17 04:35 97.8 108 16 121/60 (80) 97 11/28/17 04:04 88 11/28/17 00:15 99 11/27/17 23:36 98.5 123 16 105/56 (72) 99 11/27/17 20:00 116 11/27/17 19:41 98 Nasal Cannula 1.00 11/27/17 19:28 98.0 102 16 111/66 (81) 99 I/O 11/27/17 11/27/17 11/27/17 11/28/17 11/28/17 11/28/17 07:00 15:00 23:00 07:00 15:00 23:00 Intake Total 350 ml 960 ml Output Total 1875 ml 650 ml Balance -1525 ml 310 ml Intake Oral 150 ml 960 ml IV Total 200 ml Output Urine Total 1875 ml 650 ml # Bowel Movements 0 0 Result Diagram: 11/27/17 0515 11/27/17 0515 Objective Remarks GENERAL: SKIN: Warm and dry. HEAD: Atraumatic. Normocephalic. EYES: Pupils equal and round. No scleral icterus. No injection or drainage. ENT: No nasal bleeding or discharge. Mucous membranes pink and moist. NECK: Trachea midline. No JVD. CARDIOVASCULAR: Regular rate and rhythm. RESPIRATORY: No accessory muscle use. FEW RHONCHI GASTROINTESTINAL: Abdomen soft, non-tender, nondistended. Hepatic and splenic margins not palpable. MUSCULOSKELETAL: Extremities without clubbing, cyanosis, or edema. No obvious deformities. NEUROLOGICAL: Awake and alert. No obvious cranial nerve deficits. Motor grossly within normal limits. Five out of 5 muscle strength in the arms and legs. Normal speech. PSYCHIATRIC: Appropriate mood and affect; insight and judgment normal. Assessment and Plan Assessment and Plan IMPRESSION ASTHMA EXACERBATION IMPROVING PLAN O2 NEEDED BRONCHODILATOR THERAPY TAPER STEROIDS Alirio Amezquita MD November 28, 2017 16:52
[2017-11-28] MEDS: BENZONATATE 100 MG CAP PO PRN (18:43)
[2017-11-28 19:15] LABS: LACTIC ACID SEPSIS PROTOCOL 3.3 mmol/L (0.4-2.0)
[2017-11-28] MEDS: ACETAMINOPHEN 325 MG TAB PO PRN (21:36)
[2017-11-28] MEDS ORDERED: SODIUM CHLOR 0.9% 1000 ML INJ 1,000 ML IV ONE (23:30)
[2017-11-29] VITALS (9 sets, daily range): BP systolic 111–123; BP diastolic 53–78; PULSE 74–104; RESP 19–20; TEMP 97.3–98.3; O2SAT 95–99
[2017-11-29] MEDS: RESP: ALBUTEROL 2.5 MG/IPRATROPIUM 0.5 MG NEB (SCH) NEB ×5 (00:23→19:17)
[2017-11-29] MEDS: BENZONATATE 100 MG CAP PO PRN ×3 (00:49→22:27)
[2017-11-29] MEDS: ALBUTEROL SULFATE 90 MCG/ACT HFA 8 GM INHALER INH PRN ×2 (00:49→22:48)
[2017-11-29] MEDS: CHLORHEXIDINE GLUCONATE 2 % 1 PACK (2 CLOTHS)(taper/protocol) TOPICAL SCH (04:00)
[2017-11-29] MEDS: methylPREDNISolone SOD SUCC 40 MG/1 ML VIAL IV PUSH SCH ×2 (04:19→10:14)
[2017-11-29] MEDS: ACETAMINOPHEN 325 MG TAB PO PRN ×4 (04:19→22:28)
[2017-11-29] MEDS: predniSONE 20 MG TAB PO SCH (08:54)
[2017-11-29] MEDS: ENOXAPARIN SODIUM 40 MG/0.4 ML SYRINGE SQ SCH (08:54)
[2017-11-29] MEDS: FAMOTIDINE 20 MG/2 ML VIAL IV PUSH SCH (08:55)
[2017-11-29] MEDS ORDERED: THIAMINE HCL 100 MG TAB PO ONE ×2 (13:45→20:30)
--- NOTE | 2017-11-29 15:16 | HHI.PR ---
Subjective Remarks Says she is feeling better today. Reports shortness of breath improving. She does report left thoracic back pain which she says feels like her kidney. She says the pain gets better after she pees. Denies any dysuria. Objective Vital Signs Date Time Temp Pulse Resp B/P (MAP) Pulse Ox O2 Delivery O2 Flow Rate FiO2 11/29/17 12:00 90 11/29/17 12:00 98.1 99 20 113/55 (74) 96 11/29/17 08:12 99 11/29/17 08:01 103 11/29/17 08:00 97.6 94 20 115/66 (82) 96 11/29/17 05:19 16 11/29/17 04:00 97.5 83 19 111/53 (72) 99 11/29/17 04:00 87 11/29/17 00:00 74 11/29/17 00:00 97.3 91 19 116/61 (79) 97 11/28/17 22:07 99 Nasal Cannula 2.00 11/28/17 20:00 98.6 90 19 113/60 (77) 97 11/28/17 20:00 102 11/28/17 20:00 97 Nasal Cannula 2.00 11/28/17 17:21 107 I/O 11/28/17 11/28/17 11/28/17 11/29/17 11/29/17 11/29/17 07:00 15:00 23:00 07:00 15:00 23:00 Intake Total 960 ml 480 ml 120 ml Output Total 650 ml 1500 ml 1575 ml Balance 310 ml -1020 ml -1455 ml Intake Oral 960 ml 480 ml 120 ml Output Urine Total 650 ml 1500 ml 1575 ml # Bowel Movements 0 2 0 Result Diagram: 11/27/17 0515 11/27/17 0515 Objective Remarks GENERAL: Patient sitting in bed. Appears slightly uncomfortable. Alert and oriented 3. SKIN: Warm and dry. HEAD: Normocephalic. EYES: No scleral icterus. No injection or drainage. NECK: Supple, trachea midline. No JVD. CARDIOVASCULAR: Regular rate and rhythm without murmurs, gallops, or rubs. RESPIRATORY: Breath sounds equal bilaterally. No accessory muscle use. GASTROINTESTINAL: Abdomen soft, non-tender, nondistended. MUSCULOSKELETAL: No cyanosis, or edema. Patient does have tenderness to palpation of the paraspinal moderate muscles on the left lower thoracic spine. No tenderness to palpation of the kidneys anteriorly. BACK: Nontender without obvious deformity. No CVA tenderness. A/P Assessment and Plan //Acute asthma exacerbation ICD Code: J45.901 - Unspecified asthma with (acute) exacerbation Assessment and Plan Respiratory failure requiring oxygen by nasal cannula. -Asthma exacerbation -IV steroid, tapered steroids as tolerated -O2 supplement -Continue DuoNeb scheduled and as needed -Pulmonary consultation, followed by Dr. Hernandez, appreciated recommendations -Razia Mcneil for cough = 11/29. Patient still with wheezing on exam. Will discontinue IV steroids. Continue by mouth prednisone.. Lactate quite elevated at 4.5 yesterday. We will repeat labs. Will check d-dimer. //Patient does report left lower thoracic back pain. This is likely secondary to bed. Expect improved with discharge. Will stop narcotics. Give Tylenol if needed = Due to patient feeling that it is her kidney, we will get renal ultrasound, urinalysis. //Anxiety -Ativan as needed //DVT GI prophylaxis -Wes's and SCDs -Lovenox -Pepcid Discharge Planning Discharge home tomorrow if labs are stable, and breathing stable on by mouth prednisone Isael Barriga MD November 29, 2017 15:16
[2017-11-29 15:47] LABS: ALBUMIN 3.5 GM/DL (3.4-5.0); ALT (GPT) 55 U/L (10-53); AST (GOT) 29 U/L (15-37); BICARBONATE 24.9 MEQ/L (21.0-32.0); BLOOD UREA NITROGEN 9 MG/DL (7-18); CALCIUM 9.2 MG/DL (8.5-10.1); CHLORIDE 106 MEQ/L (98-107); CREATININE 0.83 MG/DL (0.50-1.00); GLOMERULAR FILTRATION RATE 84 ML/MIN (>89); GLUCOSE,RANDOM 198 MG/DL (74-106); SODIUM (NA) 142 MEQ/L (136-145)
[2017-11-29 15:53] LABS: ALKALINE PHOSPHATASE 101 U/L (45-117); TOTAL BILIRUBIN ADULT 0.1 MG/DL (0.2-1.0); TOTAL PROTEIN 6.8 GM/DL (6.4-8.2)
[2017-11-29] MEDS ORDERED: LIDOCAINE HCL 5% PATCH T-DERMAL ONE (16:00)
--- NOTE | 2017-11-29 16:51 | HHI.PR ---
Subjective Remarks ALERT LESS SOB Objective Vital Signs Date Time Temp Pulse Resp B/P (MAP) Pulse Ox O2 Delivery O2 Flow Rate FiO2 11/29/17 15:24 99 21 11/29/17 12:00 90 11/29/17 12:00 98.1 99 20 113/55 (74) 96 11/29/17 08:12 99 11/29/17 08:01 103 11/29/17 08:00 97.6 94 20 115/66 (82) 96 11/29/17 05:19 16 11/29/17 04:00 97.5 83 19 111/53 (72) 99 11/29/17 04:00 87 11/29/17 00:00 74 11/29/17 00:00 97.3 91 19 116/61 (79) 97 11/28/17 22:07 99 Nasal Cannula 2.00 11/28/17 20:00 98.6 90 19 113/60 (77) 97 11/28/17 20:00 102 11/28/17 20:00 97 Nasal Cannula 2.00 11/28/17 17:21 107 I/O 11/28/17 11/28/17 11/28/17 11/29/17 11/29/17 11/29/17 07:00 15:00 23:00 07:00 15:00 23:00 Intake Total 960 ml 480 ml 120 ml Output Total 650 ml 1500 ml 1575 ml Balance 310 ml -1020 ml -1455 ml Intake Oral 960 ml 480 ml 120 ml Output Urine Total 650 ml 1500 ml 1575 ml # Bowel Movements 0 2 0 Result Diagram: 11/27/17 0515 11/29/17 1516 Objective Remarks GENERAL: SKIN: Warm and dry. HEAD: Atraumatic. Normocephalic. EYES: Pupils equal and round. No scleral icterus. No injection or drainage. ENT: No nasal bleeding or discharge. Mucous membranes pink and moist. NECK: Trachea midline. No JVD. CARDIOVASCULAR: Regular rate and rhythm. RESPIRATORY: No accessory muscle use. FEW RHONCHI,WHEEZE GASTROINTESTINAL: Abdomen soft, non-tender, nondistended. Hepatic and splenic margins not palpable. MUSCULOSKELETAL: Extremities without clubbing, cyanosis, or edema. No obvious deformities. NEUROLOGICAL: Awake and alert. No obvious cranial nerve deficits. Motor grossly within normal limits. Five out of 5 muscle strength in the arms and legs. Normal speech. PSYCHIATRIC: Appropriate mood and affect; insight and judgment normal. Assessment and Plan Assessment and Plan IMPRESSION ASTHMA EXACERBATION IMPROVING PLAN O2 NEEDED BRONCHODILATOR THERAPY TAPER STEROIDS Alirio Amezquita MD November 29, 2017 16:51
--- NOTE | 2017-11-29 19:47 | RADRPT ---
EXAM DATE: 11/29/2017 6:21 PM EDT AGE/SEX: 27 years / Female INDICATIONS: Hydronephrosis. CLINICAL DATA: This is the patient's initial encounter. Patient reports that signs and symptoms have been present for 3 days and indicates a pain score of 4/10. MEDICAL/SURGICAL HISTORY: . Asthma. Anxiety. Appendectomy. Cholecystectomy. section . COMPARISON: No prior [facility] exams available for comparison. MEASUREMENTS: Right Kidney:__11.0 x 4.1 x 4.1 cm Left Kidney:__10.4 x 3.9 x 5.0 cm FINDINGS: Right Kidney: No mass or hydronephrosis Left Kidney: No mass or hydronephrosis Bladder: Within normal limits given the degree of distension. CONCLUSION: 1. Unremarkable renal ultrasound. Electronically signed by: Jorje Mcmahan MD 11/29/2017 7:46 PM EDT
[2017-11-29] MEDS ORDERED: methylPREDNISolone SOD SUCC 40 MG/1 ML VIAL IV PUSH SCH (22:00)
[2017-11-29] MEDS: FAMOTIDINE 20 MG TAB PO SCH (22:27)
[2017-11-29] MEDS ORDERED: ACETAMINOPHEN 500 MG CPLT PO PRN (22:45)
[2017-11-30] VITALS (14 sets, daily range): BP systolic 107–133; BP diastolic 57–85; PULSE 59–124; RESP 17–20; TEMP 97.3–98.5; O2SAT 96–99
[2017-11-30] MEDS: RESP: ALBUTEROL 2.5 MG/IPRATROPIUM 0.5 MG NEB (SCH) NEB ×7 (01:48→23:45)
[2017-11-30] MEDS: CHLORHEXIDINE GLUCONATE 2 % 1 PACK (2 CLOTHS)(taper/protocol) TOPICAL SCH (04:00)
[2017-11-30] MEDS ORDERED: REMOVE OLD LIDOCAINE PATCH T-DERMAL ONE (04:00)
[2017-11-30 05:36] LABS: AUTOMATED NEUTROPHIL # 7.8 TH/MM3 (1.8-7.7); HEMATOCRIT 36.3 % (35.0-46.0); HEMOGLOBIN 12.4 GM/DL (11.6-15.3); LYMPH % 22.1 % (9.0-44.0); LYMPHOCYTE # 2.5 TH/MM3 (1.0-4.8); MEAN CELL VOLUME 89.7 FL (80.0-100.0); MEAN CORPUSCULAR HEMOGLOBIN 30.5 PG (27.0-34.0); MONO % 8.5 % (0.0-8.0); NEUT % 69.4 % (16.0-70.0); PLATELET COUNT 196 TH/MM3 (150-450); RED BLOOD COUNT 4.05 MIL/MM3 (4.00-5.30); RED CELL DISTRIBUTION WIDTH 12.8 % (11.6-17.2); WHITE BLOOD COUNT 11.3 TH/MM3 (4.0-11.0)
[2017-11-30 06:06] LABS: ALBUMIN 3.2 GM/DL (3.4-5.0); BICARBONATE 29.2 MEQ/L (21.0-32.0); CALCIUM 8.6 MG/DL (8.5-10.1); CREATININE 0.72 MG/DL (0.50-1.00); DIRECT BILIRUBIN ADULT 0.1 MG/DL (0.0-0.2); MAGNESIUM 2.2 MG/DL (1.5-2.5); PHOSPHORUS 3.5 MG/DL (2.5-4.9); TOTAL BILIRUBIN ADULT 0.1 MG/DL (0.2-1.0); TOTAL PROTEIN 6.4 GM/DL (6.4-8.2)
[2017-11-30 06:17] LABS: BANDS 1 % (0-6); CORRECTED NUCLEATED RBC 2 /100 WBC (0-0); LYMPHOCYTES 25 % (9-44); METAMYELOCYTES 1 % (0-1); MONOCYTES 4 % (0-8); MYELOCYTES 3 % (0-0); NUCLEATED RED BLOOD CELL 2 (0-0); POLYS (SEG NEUTROPHILS) 65 % (16-70); PROMYELOCYTES 1 % (0-0)
[2017-11-30] MEDS: predniSONE 20 MG TAB PO SCH (08:50)
[2017-11-30] MEDS: FAMOTIDINE 20 MG TAB PO SCH ×2 (08:50→20:31)
[2017-11-30] MEDS: ENOXAPARIN SODIUM 40 MG/0.4 ML SYRINGE SQ SCH (08:50)
[2017-11-30] MEDS ORDERED: LEVOFLOXACIN 750 MG TAB PO ONE (09:15)
--- NOTE | 2017-11-30 09:19 | HHI.PR ---
Subjective Remarks She had an asthma exacerbation last night when her daughter came to visit. She denies any chest pain. She says that back pain has improved. Denies any nausea or vomiting. Objective Vital Signs Date Time Temp Pulse Resp B/P (MAP) Pulse Ox O2 Delivery O2 Flow Rate FiO2 11/30/17 08:55 99 Nasal Cannula 2.00 11/30/17 04:00 74 11/30/17 04:00 98.5 75 20 108/57 (74) 97 11/30/17 01:48 99 Nasal Cannula 2.00 11/30/17 00:00 59 11/30/17 00:00 98.5 71 20 118/59 (78) 99 11/29/17 20:00 97 Nasal Cannula 2.00 11/29/17 20:00 89 11/29/17 20:00 98.1 85 20 115/78 (90) 95 11/29/17 16:00 104 11/29/17 16:00 98.3 100 20 123/59 (80) 98 11/29/17 15:24 99 21 11/29/17 12:00 90 11/29/17 12:00 98.1 99 20 113/55 (74) 96 I/O 11/29/17 11/29/17 11/29/17 11/30/17 11/30/17 11/30/17 07:00 15:00 23:00 07:00 15:00 23:00 Intake Total 120 ml 480 ml Output Total 1575 ml 2300 ml 600 ml Balance -1455 ml -1820 ml -600 ml Intake Oral 120 ml 480 ml Output Urine Total 1575 ml 2300 ml 600 ml # Bowel Movements 0 Result Diagram: 11/30/17 0506 11/30/17 0506 Objective Remarks GENERAL: Patient sitting in bed. Appears comfortable alert and oriented 3. SKIN: Warm and dry. HEAD: Normocephalic. EYES: No scleral icterus. No injection or drainage. NECK: Supple, trachea midline. No JVD. CARDIOVASCULAR: Regular rate and rhythm without murmurs, gallops, or rubs. RESPIRATORY: Patient with wheezing bilaterally, left worse than right. GASTROINTESTINAL: Abdomen soft, non-tender, nondistended. MUSCULOSKELETAL: No cyanosis, or edema. Patient does have tenderness to palpation of the paraspinal moderate muscles on the left lower thoracic spine. No tenderness to palpation of the kidneys anteriorly. BACK: Nontender without obvious deformity. No CVA tenderness. A/P Assessment and Plan //Acute asthma exacerbation ICD Code: J45.901 - Unspecified asthma with (acute) exacerbation Assessment and Plan Respiratory failure requiring oxygen by nasal cannula. -Asthma exacerbation -IV steroid, tapered steroids as tolerated -O2 supplement -Continue DuoNeb scheduled and as needed -Pulmonary consultation, followed by Dr. Hernandez, appreciated recommendations -Tessalon Perles for cough = 11/29. Patient still with wheezing on exam. Will discontinue IV steroids. Continue by mouth prednisone.. Lactate quite elevated at 4.5 yesterday. We will repeat labs. Will check d-dimer. = 11/30. worsened respiratory status. Extensive wheezing on exam. D-dimer normal. Lactate improved after thiamine. Will start back on IV steroids. Start Singulair and Claritin. Check CT chest. Order incentive spirometry and Acapella. Bilateral anterior cervical lymphadenopathy increases suspicion of infection.. Start Levaquin. //Patient does report left lower thoracic back pain. This is likely secondary to bed. Expect improved with discharge. Will stop narcotics. Give Tylenol if needed = Negative ultrasound. Back pain has resolved. This back pain is likely secondary to bed. //Transaminitis. Mild. Will discontinue Tylenol. //Anxiety -Ativan as needed //DVT GI prophylaxis -Wes's and SCDs -Lovenox -Pepcid Discharge Planning Discharge home tomorrow if labs are stable, and breathing stable on by mouth prednisone Isael Barriga MD November 30, 2017 09:19
[2017-11-30] MEDS ORDERED: LORATADINE 10 MG TAB PO ONE (09:20)
[2017-11-30] MEDS ORDERED: MONTELUKAST SODIUM 4 MG CHEWABLE TAB CHEW ONE (10:00)
[2017-11-30] MEDS: methylPREDNISolone SOD SUCC 40 MG/1 ML VIAL IV PUSH SCH ×2 (10:28→17:10)
[2017-11-30] MEDS: BENZONATATE 100 MG CAP PO PRN ×2 (15:03→23:08)
[2017-11-30] MEDS ORDERED: ACETAMINOPHEN 500 MG CPLT PO ONE (16:00)
--- NOTE | 2017-11-30 20:11 | RADRPT ---
EXAM DATE: 11/30/2017 7:48 PM EDT AGE/SEX: 27 years / Female INDICATIONS: Evaluate for pneumonia. CLINICAL DATA: This is the patient's initial encounter. Patient reports that signs and symptoms have been present for 1 day and indicates a pain score of 0/10. MEDICAL/SURGICAL HISTORY: None. Appendectomy. Cholecystectomy. RADIATION DOSE: 8.81 CTDI (mGy) COMPARISON: No prior [place] exams available for comparison. TECHNIQUE: Multiple contiguous axial images were obtained through the chest without contrast. Image s were obtained in suspended respiration using multiple row detector helical technique. Using automa nedra exposure control and adjustment of the mA and/or kV according to patient size, radiation dose was kept as low as reasonably achievable to obtain optimal diagnostic quality images. FINDINGS: Lungs: The lungs are symmetrically aerated. No infiltrates or nodular densities are seen. Mediastinum: There is good visualization of the great vessels of the middle mediastinum. No evidenc e of mediastinal or hilar adenopathy/mass. Pleurae: No evidence of focal thickening or pleural effusion. Axillae: Unremarkable. Bony Structures: Unremarkable. Miscellaneous: The examination was extended to include the upper abdomen, and both adrenal glands ar e normal in size and configuration. CONCLUSION: Negative CT Chest non contrast. Electronically signed by: Charan Hamilton MD 11/30/2017 8:10 PM EDT
[2017-11-30] MEDS: SODIUM CHLORIDE 0.9% FLUSH 10 ML FLUSH IVF PRN (20:33)
[2017-12-01] VITALS: BP 144/88; PULSE 118; PULSE 78; RESP 16; TEMP 97.6; O2SAT 97
--- NOTE | 2017-12-01 01:04 | HHI.PR ---
Subjective Remarks ALERT FEELS MUCH BETTER TODAY Objective Vital Signs Date Time Temp Pulse Resp B/P (MAP) Pulse Ox O2 Delivery O2 Flow Rate FiO2 11/30/17 23:46 98 21 11/30/17 19:30 Room Air 11/30/17 16:45 99 Nasal Cannula 2.00 11/30/17 16:00 97.7 99 17 107/85 (92) 99 11/30/17 15:50 124 11/30/17 12:00 98.4 104 17 125/62 (83) 97 11/30/17 11:34 106 11/30/17 08:55 99 Nasal Cannula 2.00 11/30/17 08:02 75 11/30/17 08:00 97.7 86 17 115/73 (87) 96 11/30/17 04:00 74 11/30/17 04:00 98.5 75 20 108/57 (74) 97 11/30/17 01:48 99 Nasal Cannula 2.00 I/O 11/30/17 11/30/17 11/30/17 12/01/17 12/01/17 12/01/17 07:00 15:00 23:00 07:00 15:00 23:00 Intake Total 2000 ml Output Total 600 ml 2300 ml Balance -600 ml -300 ml Intake Oral 2000 ml Output Urine Total 600 ml 2300 ml # Bowel Movements 1 Result Diagram: 11/30/17 0506 11/30/17 0506 Objective Remarks GENERAL: SKIN: Warm and dry. HEAD: Atraumatic. Normocephalic. EYES: Pupils equal and round. No scleral icterus. No injection or drainage. ENT: No nasal bleeding or discharge. Mucous membranes pink and moist. NECK: Trachea midline. No JVD. CARDIOVASCULAR: Regular rate and rhythm. RESPIRATORY: No accessory muscle use. FEW RHONCHI,WHEEZE GASTROINTESTINAL: Abdomen soft, non-tender, nondistended. Hepatic and splenic margins not palpable. MUSCULOSKELETAL: Extremities without clubbing, cyanosis, or edema. No obvious deformities. NEUROLOGICAL: Awake and alert. No obvious cranial nerve deficits. Motor grossly within normal limits. Five out of 5 muscle strength in the arms and legs. Normal speech. PSYCHIATRIC: Appropriate mood and affect; insight and judgment normal. Assessment and Plan Assessment and Plan IMPRESSION ASTHMA EXACERBATION IMPROVING PLAN O2 NEEDED BRONCHODILATOR THERAPY TAPER STEROIDS Alirio Amezquita MD December 01, 2017 01:03
[2017-12-01] MEDS: methylPREDNISolone SOD SUCC 40 MG/1 ML VIAL IV PUSH SCH (02:35)
[2017-12-01] MEDS: RESP: ALBUTEROL 2.5 MG/IPRATROPIUM 0.5 MG NEB (SCH) NEB ×2 (03:24→09:02)
[2017-12-01] MEDS ORDERED: SODIUM CHLORIDE 0.65% NASAL SPRAY 45 ML BTL EACH NARE PRN (03:30)
[2017-12-01 03:59] VITALS: PULSE 105
[2017-12-01 04:00] VITALS: BP 125/73; PULSE 96; RESP 16; TEMP 98; O2SAT 97
[2017-12-01] MEDS: CHLORHEXIDINE GLUCONATE 2 % 1 PACK (2 CLOTHS)(taper/protocol) TOPICAL SCH (04:00)
[2017-12-01] MEDS: ALBUTEROL SULFATE 90 MCG/ACT HFA 8 GM INHALER INH PRN (04:27)
[2017-12-01] MEDS: BENZONATATE 100 MG CAP PO PRN (06:47)
[2017-12-01 07:44] LABS: AUTOMATED NEUTROPHIL # 12.9 TH/MM3 (1.8-7.7); HEMATOCRIT 39.7 % (35.0-46.0); HEMOGLOBIN 13.4 GM/DL (11.6-15.3); LYMPH % 13.4 % (9.0-44.0); LYMPHOCYTE # 2.2 TH/MM3 (1.0-4.8); MEAN CELL VOLUME 89.4 FL (80.0-100.0); MEAN CORPUSCULAR HEMOGLOBIN 30.2 PG (27.0-34.0); MEAN CORPUSCULAR HGB CONC 33.8 % (32.0-36.0); MEAN PLATELET VOLUME 8.9 FL (7.0-11.0); MONO % 7.4 % (0.0-8.0); MONOCYTE # 1.2 TH/MM3 (0-0.9); NEUT % 79.2 % (16.0-70.0); PLATELET COUNT 242 TH/MM3 (150-450); RED BLOOD COUNT 4.44 MIL/MM3 (4.00-5.30); RED CELL DISTRIBUTION WIDTH 12.7 % (11.6-17.2); WHITE BLOOD COUNT 16.3 TH/MM3 (4.0-11.0)
[2017-12-01] MEDS: FAMOTIDINE 20 MG TAB PO SCH (08:25)
[2017-12-01] MEDS: ENOXAPARIN SODIUM 40 MG/0.4 ML SYRINGE SQ SCH (08:26)
[2017-12-01 08:37] LABS: ALBUMIN 3.7 GM/DL (3.4-5.0); ALKALINE PHOSPHATASE 111 U/L (45-117); ALT (GPT) 367 U/L (10-53); AST (GOT) 168 U/L (15-37); BICARBONATE 25.9 MEQ/L (21.0-32.0); BLOOD UREA NITROGEN 16 MG/DL (7-18); CHLORIDE 104 MEQ/L (98-107); CREATININE 0.85 MG/DL (0.50-1.00); DIRECT BILIRUBIN ADULT LESS THAN 0.1 MG/DL (0.0-0.2); GLOMERULAR FILTRATION RATE 81 ML/MIN (>89); GLUCOSE,RANDOM 155 MG/DL (74-106); MAGNESIUM 2.5 MG/DL (1.5-2.5); PHOSPHORUS 3.3 MG/DL (2.5-4.9); SODIUM (NA) 140 MEQ/L (136-145); TOTAL BILIRUBIN ADULT 0.1 MG/DL (0.2-1.0); TOTAL PROTEIN 7.3 GM/DL (6.4-8.2)
[2017-12-01 08:55] VITALS: BP 115/60; PULSE 108; RESP 18; TEMP 98.1; O2SAT 95
[2017-12-01 08:59] LABS: BANDS 3 % (0-6); CORRECTED NUCLEATED RBC 1 /100 WBC (0-0); LYMPHOCYTES 11 % (9-44); METAMYELOCYTES 6 % (0-1); MONOCYTES 3 % (0-8); NUCLEATED RED BLOOD CELL 1 (0-0); POLYS (SEG NEUTROPHILS) 77 % (16-70)
[2017-12-01] MEDS ORDERED: LORATADINE 10 MG TAB PO SCH (09:00)
[2017-12-01] MEDS ORDERED: LEVOFLOXACIN 750 MG TAB PO SCH (09:00)
[2017-12-01 09:04] VITALS: O2SAT 96
[2017-12-01] MEDS ORDERED: predniSONE 10 MG TAB PO SCH (09:30)
[2017-12-01] MEDS ORDERED: LEVA750T9 PO (10:28)
[2017-12-01] MEDS ORDERED: ALBUAER3 INH (10:28)
[2017-12-01] MEDS ORDERED: CLAR10TA7 PO (10:28)
[2017-12-01] MEDS ORDERED: PRED10 PO (10:28)
[2017-12-01] MEDS ORDERED: MONT5CHW5 CHEW (10:28)
[2017-12-01] MEDS ORDERED: PANT20TA2 PO (10:28)
[2017-12-01] MEDS ORDERED: AZEL0.055 EACH NARE (10:28)
[2017-12-01] MEDS ORDERED: predniSONE 20 MG TAB PO ONE (10:45)
--- NOTE | 2017-12-01 10:45 | HHI.PR ---
Subjective Remarks She says she is much improved. Would like to go home. Denies any chest pain, back pain. Objective Vital Signs Date Time Temp Pulse Resp B/P (MAP) Pulse Ox O2 Delivery O2 Flow Rate FiO2 12/01/17 09:04 96 12/01/17 08:55 98.1 108 18 115/60 (78) 95 12/01/17 04:00 98.0 96 16 125/73 (90) 97 12/01/17 03:59 105 12/01/17 00:00 97.6 78 16 144/88 (106) 97 12/01/17 00:00 118 11/30/17 23:46 98 21 11/30/17 20:00 97.3 113 17 133/82 (99) 98 11/30/17 19:59 95 11/30/17 19:30 Room Air 11/30/17 16:45 99 Nasal Cannula 2.00 11/30/17 16:00 97.7 99 17 107/85 (92) 99 11/30/17 15:50 124 11/30/17 12:00 98.4 104 17 125/62 (83) 97 11/30/17 11:34 106 I/O 11/30/17 11/30/17 11/30/17 12/01/17 12/01/17 12/01/17 07:00 15:00 23:00 07:00 15:00 23:00 Intake Total 2000 ml 940 ml Output Total 600 ml 2300 ml 2000 ml Balance -600 ml -300 ml -1060 ml Intake Oral 2000 ml 940 ml Output Urine Total 600 ml 2300 ml 2000 ml # Bowel Movements 1 Result Diagram: 12/01/17 0655 12/01/17 0655 Objective Remarks GENERAL: Patient sitting in bed. Appears comfortable alert and oriented 3. SKIN: Warm and dry. HEAD: Normocephalic. EYES: No scleral icterus. No injection or drainage. NECK: Supple, trachea midline. No JVD. CARDIOVASCULAR: Regular rate and rhythm without murmurs, gallops, or rubs. RESPIRATORY: Patient with wheezing bilaterally, left worse than right. GASTROINTESTINAL: Abdomen soft, non-tender, nondistended. Right upper quadrant tenderness. MUSCULOSKELETAL: No cyanosis, or edema. No tenderness. BACK: Nontender without obvious deformity. No CVA tenderness. A/P Assessment and Plan //Acute asthma exacerbation ICD Code: J45.901 - Unspecified asthma with (acute) exacerbation Assessment and Plan Respiratory failure requiring oxygen by nasal cannula. -Asthma exacerbation -IV steroid, tapered steroids as tolerated -O2 supplement -Continue DuoNeb scheduled and as needed -Pulmonary consultation, followed by Dr. Hernandez, appreciated recommendations -Tesbeverly Mcneil for cough = 11/29. Patient still with wheezing on exam. Will discontinue IV steroids. Continue by mouth prednisone.. Lactate quite elevated at 4.5 yesterday. We will repeat labs. Will check d-dimer. = 11/30. worsened respiratory status. Extensive wheezing on exam. D-dimer normal. Lactate improved after thiamine. Will start back on IV steroids. Start Singulair and Claritin. Check CT chest. Order incentive spirometry and Acapella. Bilateral anterior cervical lymphadenopathy increases suspicion of infection.. Start Levaquin. = 12/01. Much improved on Levaquin, Singulair. //Patient does report left lower thoracic back pain. This is likely secondary to bed. Expect improved with discharge. Will stop narcotics. Give Tylenol if needed = Negative ultrasound. Back pain has resolved. This back pain is likely secondary to bed. //Transaminitis. Mild. Will discontinue Tylenol. = 12/01. Transaminitis worsened. AST 168, ALT 367. Bilirubin within normal limits. I have advised patient to avoid Tylenol completely, also to avoid NSAIDs. Advised follow-up with primary care early this week to check liver enzymes, and if improved, she probably take Tylenol occasionally as needed. Advised that hepatitis profile pending. //Anxiety -Ativan as needed //DVT GI prophylaxis -Wes's and SCDs -Lovenox -Pepcid Discharge Planning Discharge home on prednisone taper, adjusted medication regimen. Follow-up with primary care for transaminitis Isael Barriga MD December 01, 2017 10:44
--- NOTE | 2017-12-01 10:50 | HHI.DS ---
Discharge Summary Admission Date November 26, 2017 at 20:51 Discharge Date: December 01, 2017 Admitting Diagnosis asthma exacerbation, lactic acidosis (1) Acute asthma exacerbation ICD Code: J45.901 - Unspecified asthma with (acute) exacerbation Procedures No invasive procedures Brief History - From Admission Ms. Marks is a pleasant 27-year-old female with a history of asthma who presented to the emergency department on 11/26/2017 due to shortness of breath, asthma flareup. Her symptoms started on 11/24/2017 which got better the following day. However, today her symptoms worsened and she subsequently went to her asthma trade show specialist who provided 1 dose of epinephrine and advised patient to come to the emergency department. Patient denies any chest pain, fever or chills. Denies any changes in bowel or bladder habits. Her 1-year-old daughter has had cold symptoms recently. On arrival temperature 99.2F pulse 115, respiration 30, blood pressure 152/91, pulse oximetry 98%. Patient is requiring supplemental oxygen. She does report some anxiety as well. CBC/BMP: 12/01/17 0655 12/01/17 0655 Significant Findings Laboratory Tests Test 11/28/17 18:31 11/28/17 21:27 11/29/17 15:16 11/29/17 15:40 Lactic Acid Level 3.3 mmol/L (0.4-2.0) 4.5 mmol/L (0.4-2.0) 4.0 mmol/L (0.4-2.0) Random Glucose 198 MG/DL (74-106) Alanine Aminotransferase (ALT/SGPT) 55 U/L (10-53) Total Bilirubin 0.1 MG/DL (0.2-1.0) Estimat Glomerular Filtration Rate 84 ML/MIN (>89) Test 11/30/17 05:06 12/01/17 06:55 White Blood Count 11.3 TH/MM3 (4.0-11.0) 16.3 TH/MM3 (4.0-11.0) Monocytes (%) (Auto) 8.5 % (0.0-8.0) Neutrophils # (Auto) 7.8 TH/MM3 (1.8-7.7) 12.9 TH/MM3 (1.8-7.7) Monocytes # (Auto) 1.0 TH/MM3 (0-0.9) 1.2 TH/MM3 (0-0.9) Neutrophils # (Manual) 8.0 TH/MM3 (1.8-7.7) 14.0 TH/MM3 (1.8-7.7) Myelocytes 3 % (0-0) Promyelocytes 1 % (0-0) Nucleated Red Blood Cells 2 /100 WBC (0-0) 1 /100 WBC (0-0) Random Glucose 116 MG/DL (74-106) 155 MG/DL (74-106) Albumin 3.2 GM/DL (3.4-5.0) Aspartate Amino Transf (AST/SGOT) 61 U/L (15-37) 168 U/L (15-37) Alanine Aminotransferase (ALT/SGPT) 103 U/L (10-53) 367 U/L (10-53) Total Bilirubin 0.1 MG/DL (0.2-1.0) 0.1 MG/DL (0.2-1.0) Neutrophils (%) (Auto) 79.2 % (16.0-70.0) Neutrophils % (Manual) 77 % (16-70) Metamyelocytes 6 % (0-1) Estimat Glomerular Filtration Rate 81 ML/MIN (>89) Imaging Last Impressions Chest CT 11/30/17 Signed Impressions: CONCLUSION: Negative CT Chest non contrast. Renal Ultrasound 11/29/17 0000 Signed Impressions: CONCLUSION: 1. Unremarkable renal ultrasound. Chest X-Ray 11/26/17 1544 Signed Impressions: CONCLUSION: Hypoinflation with no acute cardiopulmonary process. PE at Discharge GENERAL: 27-year-old female in minimal respiratory distress. CARDIOVASCULAR: Regular rate and rhythm. RESPIRATORY: No accessory muscle use. Good air entry bilaterally, minimal wheezing bilaterally. GASTROINTESTINAL: Abdomen soft, non-tender, nondistended. MUSCULOSKELETAL: No obvious deformities. No clubbing. No cyanosis. No edema. NEUROLOGICAL: Awake and alert. No obvious cranial nerve deficits. Motor grossly within normal limits. Normal speech in short sentences limited by respiratory distress. Hospital Course Patient is managed with IV steroids, with improvement. CT chest negative for acute process. Patient will be continued on Levaquin, prednisone to complete treatment course. She will also be started on Singulair, Claritin, is lasting nasal spray. Patient also developed lactic acidosis which improved after thiamine supplementation. Patient also developed transaminitis with AST, ALT up to the 160s, 300s respectively. Bilirubin within normal limits, alk phos within normal limits, albumin within normal limits. This could be secondary to Tylenol received in the hospital, however received less than 3 g in 1 day. Tylenol will be discontinued and patient advised to avoid use. She is to follow-up with primary care early this week to check liver function. For problem-based summary from most recent progress note, please see below. //Acute asthma exacerbation ICD Code: J45.901 - Unspecified asthma with (acute) exacerbation Assessment and Plan Respiratory failure requiring oxygen by nasal cannula. -Asthma exacerbation -IV steroid, tapered steroids as tolerated -O2 supplement -Continue DuoNeb scheduled and as needed -Pulmonary consultation, followed by Dr. Hernandez, appreciated recommendations -Razia Mcneil for cough = 11/29. Patient still with wheezing on exam. Will discontinue IV steroids. Continue by mouth prednisone.. Lactate quite elevated at 4.5 yesterday. We will repeat labs. Will check d-dimer. = 11/30. worsened respiratory status. Extensive wheezing on exam. D-dimer normal. Lactate improved after thiamine. Will start back on IV steroids. Start Singulair and Claritin. Check CT chest. Order incentive spirometry and Acapella. Bilateral anterior cervical lymphadenopathy increases suspicion of infection.. Start Levaquin. = 12/01. Much improved on Levaquin, Singulair. //Patient does report left lower thoracic back pain. This is likely secondary to bed. Expect improved with discharge. Will stop narcotics. Give Tylenol if needed = Negative ultrasound. Back pain has resolved. This back pain is likely secondary to bed. //Transaminitis. Mild. Will discontinue Tylenol. = 12/01. Transaminitis worsened. AST 168, ALT 367. Bilirubin within normal limits. I have advised patient to avoid Tylenol completely, also to avoid NSAIDs. Advised follow-up with primary care early this week to check liver enzymes, and if improved, she probably take Tylenol occasionally as needed. Advised that hepatitis profile pending. //Anxiety -Ativan as needed //DVT GI prophylaxis -Wes's and SCDs -Lovenox -Pepcid Discharge Planning Discharge home on prednisone taper, adjusted medication regimen. Follow-up with primary care for transaminitis Pt Condition on Discharge: Good Discharge Disposition: Discharge Home Discharge Time: > 30 minutes Discharge Instructions DIET: Follow Instructions for: As Tolerated, No Restrictions Activities you can perform: Regular-No Restrictions Follow up Referrals: PCP Follow-up - 2-3 Days with Padmini Steel MD Pulmonology - 1 Week with Alirio Amezquita MD New Orders: COMP MET PROF (CMP) - 2-3 Days New Medications: Azelastine Nasal Flournoy (Azelastine Nasal Flournoy) 0.15% Flournoy 1 SPRAY EACH NARE BID for Allergies, #1 BOTTLE 0 Refills To each nostril. Pantoprazole (Pantoprazole) 20 Mg Tab 20 MG PO DAILY for Reflux for 14 Days, #14 TAB 0 Refills Levofloxacin (Levaquin) 750 Mg Tablet 750 MG PO DAILY for Infection for 5 Days, #5 TAB Loratadine (Claritin) 10 Mg Tablet 10 MG PO DAILY for Allergies for 30 Days, #30 TAB Montelukast (Montelukast) 5 Mg Chew 5 MG CHEW HS for Allergies for 30 Days, EA Prednisone (Prednisone) 10 Mg Tab 30 MG PO BID for Asthma exacerbation, #36 TAB Take 50mg daily for 3 days; Take 40mg daily for 3 days; 20mg daily for 3 days; 10mg daily for 3 days, then stop. Continued Medications: Albuterol 8.5 GM Inh (Proair Hfa 8.5 GM Inh) 90 Mcg/Act Aer 2 PUFF INH Q4-6H PRN for SHORTNESS OF BREATH for 30 Days, #1 INHALER 0 Refills ( This prescription has been renewed) 108 mcg/actuation Fluticasone-Vilanterol Inh (Breo Ellipta Inh) 200-25 Mcg/Act Inh 1 PUFF INH DAILY, #1 INHALER 0 Refills Use daily at the same time. Omalizumab Inj (Xolair Inj) 150 Mg Vial 150 MG SQ Q28D, VIAL Isael Barriga MD December 01, 2017 10:50
[2017-12-01] MEDS ORDERED: MONTELUKAST SODIUM 5 MG CHEWABLE TAB CHEW SCH (21:00)
== END 2017-12-01 12:11 | disposition home or self-care (01) | DRG 202 ==
LOC: NEPC 15:29 → NEDA 17:13 → NEPGCP 19:14 → OBSVTOIN 20:51 → HIME 21:55 → N04A 11-27 15:37 → N04B 11-28 14:04
PROVIDERS: ADMIT Internal Medicine; ATTEND Internal Medicine
DX: J45.901 Unspecified asthma with (acute) exacerbation (principal); J96.90 Respiratory failure, unspecified, unspecified whether with hypoxia or hypercapnia; E87.2 Acidosis; F41.9 Anxiety disorder, unspecified; Z91.010 Allergy to peanuts; Z79.51 Long term (current) use of inhaled steroids; Z79.899 Other long term (current) drug therapy
CPT/HCPCS: 36600; 71045; 71250; 76775; 80048; 80053; 80069; 80074; 80076; 81001; 82550; 82805; 83605; 83735; 85007; 85025; 85027; 85379; 87040; 87641; 87804; 94150; 94640; 94664; 94667; 94668; J0456; J0696; J1644; J1650; J2060; J2920; J2930; J3475; J7030; J7050; J7512